=== PATIENT | female | born 1950 | race Two or more races ===

== ENCOUNTER 2020-07-07 05:41 | Inpatient (IN) | payer OTHER ==
--- NOTE | 2020-06-25 09:18 | NUR ---
*-* DISCHARGE PLANNING NOTE *-* UTILIZE CERTIFIED LETTER FOR DISCHARGE PLANNING NEEDS. [facility]# [id number] DOI 09/18/2013 CERT CODE: [id number] JEMMA DUNLAP ADJ VERIFIED [phone] CERTIFIED LETTER HAS BEEN EMAILED TO LAPPING MACHINE SET UP OPERATOR FLAVIO AND CM TECHNOLOGY COORDINATOR.
[~2020-07-07] VITALS: Ht 7.6 cm; Wt 105.2 kg
[2020-07-07] VITALS (16 sets, daily range): BP systolic 95–144; BP diastolic 40–84
[~2020-07-07 05:41] MED LIST: LOSARTAN POTASS50 MG ORAL
[2020-07-07] MEDS ORDERED: LR 1000ml 1,000 ML IVLG SCH (06:57)
--- NOTE | 2020-07-07 06:59 | Anethesia Preoperative Eval ---
Anesthesia Pre-op PMH/ROS General Date of Evaluation: Jul 07, 2020 Time of Evaluation: 07:51 Anesthesiologist: Yunior ASA Score: ASA 3 Mallampati Score Class I : Soft palate, uvula, fauces, pillars visible Class II: Soft palate, uvula, fauces visible Class III: Soft palate, base of uvula visible Class IV: Only hard plate visible Mallampati Classification: Class II Surgeon: Abe Diagnosis: L Knee Pain Surgical Procedure: L Knee Total Arthroplasty Anesthesia History: none Family History: no anesthesia problems Allergies: Coded Allergies: No Known Allergies (Unverified , 07/06/20) Medications: see eMAR Patient NPO?: Yes Past Medical History Cardiovascular: Reports: HTN Gastrointestinal/Genitourinary: Reports: other - Uterine CA Neurologic/Psychiatric: Reports: depression/anxiety Musculoskeletal/Integumentary: Reports: OA Other: obesity - Mrbid BMI 40 PSxH Narrative: CALISTA Anesthesia Pre-op Phys. Exam Physician Exam Last Vital Signs Date Time Temp Pulse Resp B/P (MAP) Pulse Ox O2 Delivery O2 Flow Rate FiO2 07/07/20 06:34 Room Air 07/07/20 06:32 97.6 92 18 144/79 (100) 97 Constitutional: NAD Neurologic: CN 2-12 intact Cardiovascular: RRR Respiratory: CTA Gastrointestinal: S/NT/ND Airway Exam Mallampati Score: Class II MO: full ROM: limited Teeth: missing, intact Anesthesia Pre-op A/P Risk Assessment & Plan Assessment: ASA 3 Plan: GA, Spinal Status Change Before Surgery: No Pre-Antibiotics Dru Grams Ancef IV Given Within 1 Hr of Incision: Yes Time Given: 08:36 Andrey Mojica MD Jul 07, 2020 06:59
[2020-07-07] MEDS ORDERED: oxyCODONE HCL/Acetaminophen 5/325mg ORAL PRN (07:00)
[2020-07-07] MEDS ORDERED: Meperidine 25mg/0.5ml Inj (FOR RIGORS ONLY) IV PRN (07:00)
[2020-07-07] MEDS ORDERED: Hydromorphone 0.5mg/0.5ml inj IVP PRN (07:00)
[2020-07-07] MEDS ORDERED: Labetalol 5mg/ml 20ml vial IV PRN (07:00)
[2020-07-07] MEDS ORDERED: HYDROcodone/Acetamin 5/325 tab ORAL PRN ×2 (07:00→13:15)
[2020-07-07] MEDS ORDERED: LORazepam Inj 2mg/ml 1ml IV PRN (07:00)
[2020-07-07] MEDS ORDERED: Atropine Sulfate 0.4mg/ml inj IVP PRN (07:00)
[2020-07-07] MEDS ORDERED: DiphenhydrAMINE 50mg/ml Inj IVP PRN (07:00)
[2020-07-07] MEDS ORDERED: Metoclopramide 10mg/2ml Inj IVP PRN (07:00)
[2020-07-07] MEDS ORDERED: Ketorolac 30mg Inj IV PRN ×2 (07:00)
[2020-07-07] MEDS ORDERED: ceFAZolin sod 2 GM in NS 55 ML IVPB ONE (07:00)
[2020-07-07] MEDS ORDERED: fentaNYL 100 mcg/2 mL IV PRN (07:00)
[2020-07-07] MEDS ORDERED: Midazolam 2mg/2ml Inj IVP PRN (07:00)
[2020-07-07] MEDS ORDERED: HYDROcodone/Acetamin 7.5/325 tab ORAL PRN ×2 (07:00→13:15)
[2020-07-07] MEDS ORDERED: EPINEPHrine 1mg/1ml Amp ONE ×2 (07:02→09:39)
[2020-07-07] MEDS ORDERED: Bupivacaine 0.5% Inj 30 ml vial INJ ONE (07:03)
[2020-07-07] MEDS ORDERED: cloNIDine 1000mcg/10ml inj ONE (07:03)
[2020-07-07] MEDS ORDERED: NeoSporin Gu Irrig 1ml Amp IRRIG ONE (07:06)
[2020-07-07] MEDS ORDERED: Bacitracin 50000 Units Vial ONE (07:06)
[2020-07-07] MEDS ORDERED: Tranexamic Acid 1,000 MG in NS 55 ML IV ONE (07:15)
--- NOTE | 2020-07-07 07:33 | Immediate Post-Op Evaluation ---
Immediate Post-Op Evalulation Immediate Post-Op Evalulation Procedure: L Knee Total Arthroplasty Date of Evaluation: Jul 07, 2020 Time of Evaluation: 13:22 IV Fluids: 1700 LR Blood Products: 0 Estimated Blood Loss: 100 Urinary Output: 0 Blood Pressure Systolic: 107 Blood Pressure Diastolic: 46 Pulse Rate: 100 Respiratory Rate: 16 O2 Sat by Pulse Oximetry: 100 Temperature (Fahrenheit): 97.6 Pain Score (1-10): 1 Nausea: No Vomiting: No Complications 0 Patient Status: awake, reacts, patent, none Hydration Status: adequate Dru Grams Ancef IV Given Within 1 Hr of Incision: Yes Time Given: 08:36 Andrey Mojica MD Jul 07, 2020 07:33
[2020-07-07] MEDS ORDERED: NS Irrig 2000ml IRRIG ONE ×3 (07:41→11:02)
[2020-07-07] MEDS ORDERED: Sodium Chloride 10ml vial INJ ONE (08:08)
[2020-07-07] MEDS ORDERED: Lidocaine 1% MPF 10mg/ml 5ml ONE ×2 (08:08→10:20)
--- NOTE | 2020-07-07 08:10 | Pre-Procedure Note/Attestation ---
Pre-Procedure Note/Attestation Complete Prior to Procedure Planned Procedure: left Procedure Narrative: Left Total Knee Arthroplasty Indications for Procedure Pre-Operative Diagnosis: End stage OA with Varus Deformity, Contractures, and Instability Attestation I attest that I discussed the nature of the procedure; its benefits; risks and complications; and alternatives (and the risks and benefits of such alternatives ), prior to the procedure, with the patient (or the patient's legal territory sales representative). I attest that, if there was a reasonable possibility of needing a blood transfusion, the patient (or the patient's legal territory sales representative) was given the [facility] standardized written summary, pursuant to the Dustin Leeanna Blood Safety Act ([place] Health and Safety Code # 1645, as amended). I attest that I re-evaluated the patient just prior to the surgery and that there has been no change in the patient's H&P, except as documented below: Diony Fish MD Jul 07, 2020 08:10
[2020-07-07] MEDS ORDERED: fentaNYL 100 mcg/2 mL IV ONE ×4 (08:52→11:48)
[2020-07-07] MEDS ORDERED: Lidocaine 1% Plain 30 ml INJ ONE (08:57)
[2020-07-07] MEDS ORDERED: Acetaminophen (Non formulary) 100 ML IV ONE (09:20)
[2020-07-07] MEDS ORDERED: Ropivacaine 5mg/ml Vial 20ml INJ ONE ×3 (09:39→12:39)
[2020-07-07] MEDS ORDERED: Metoprolol Tartrate 5mg/5ml Inj ONE ×2 (11:46→12:30)
[2020-07-07] MEDS ORDERED: Bupivacaine w/Epi 0.5% 30ml Vial INJ ONE (12:36)
[2020-07-07] MEDS ORDERED: Milk of Magnesia 30ml Ud ORAL PRN (13:15)
[2020-07-07] MEDS ORDERED: HYDROmorphone 1mg/ml Carpuject SUBQ PRN (13:15)
[2020-07-07] MEDS ORDERED: oxyCODONE 5mg IR tab ORAL PRN (13:15)
--- NOTE | 2020-07-07 13:40 | Brief Operative Note ---
Immediate Post Operative Note Operative Note Chief Complaint: End stage OA with Deformity and limited motion Pre-op Diagnosis: End stage OA with Varus Deformity, Contractures, and Instability Post-op Diagnosis: same as pre-op Surgeon: Scott Morales M.D. Dude Wrangler: Greg Polo M.D. Additional Surgeons: Linwood Rodas Anesthesia: general, regional Specimen: yes Complications: none Condition: stable Fluids: 1500 Estimated Blood Loss: volume - less than 75 cc Drains: hemovac Tourniquet time: 124 Implant(s) used?: Yes - Astrid Persona Size 5 Left PS Femur, Size C Tibia, 20mm Post Poly, and 29 x 8 poly patella, all cemented Diony Fish MD Jul 07, 2020 13:40
--- NOTE | 2020-07-07 13:43 | Immediate Post-Op Evaluation ---
Immediate Post-Op Evalulation Immediate Post-Op Evalulation Procedure: L Knee Total Arthroplasty Date of Evaluation: Jul 07, 2020 Time of Evaluation: 13:45 IV Fluids: yes Blood Products: no Estimated Blood Loss: less than 75cc Blood Pressure Systolic: 126 Blood Pressure Diastolic: 88 Pulse Rate: 72 Respiratory Rate: 16 O2 Sat by Pulse Oximetry: 96 Temperature (Fahrenheit): 98.8 Pain Score (1-10): 7 Nausea: No Vomiting: No Complications No Patient Status: reacts - drowzy Hydration Status: adequate Drug: Ancef Given Within 1 Hr of Incision: Yes Time Given: 13:00 Diony Fish MD Jul 07, 2020 13:43
[2020-07-07 14:19] LABS: HEMATOCRIT 37.8 % (37.0-47.0); HEMOGLOBIN 12.5 G/DL (12.0-16.0); MEAN CORPUSCULAR VOLUME 101 FL (80-99); PLATELET COUNT 79 K/UL (150-450); RED BLOOD COUNT 3.75 M/UL (4.20-5.40); RED CELL DISTRIBUTION WIDTH 12.1 % (11.6-14.8); WHITE BLOOD COUNT 7.5 K/UL (4.8-10.8)
--- NOTE | 2020-07-07 14:45 | NUR ---
NURSE NOTES: Report received from Rosi SQL DEVELOPER. Patient is transferred from PACU to [address] [place] [address] without any incident. Patient is alert, oriented x4, and able to make needs known. Respirations even and unlabored. IV site is asymptomatic, patent, and intact. IVF is running at a prescribed rate. Mehta catheter is patent, intact, and draining via gravity. Patient is able to feel sensation on left lower extremity, warm to touch, and patient is able to move toes. Belongings list checked and signed with SIDE SPLITTER. Bed is in lowest position with side rails up x2 and brakes are engaged. Bed alarm is on. Encouraged patient to use call light when in need of assistance, pt verbalized understanding. Will continue to monitor.
--- NOTE | 2020-07-07 16:11 | NUR ---
NURSE NOTES: Patient is asleep but arousable by voice. Denies pain at this time. Respirations even and unlabored. Will continue to monitor.
[2020-07-07] MEDS: celeBREX 200mg Cap **SURGERY PATIENTS ONLY ORAL SCH (16:52)
[2020-07-07] MEDS: D5 1/2NS w/KCl 20mEq 1,000 ML IV SCH (17:04)
[2020-07-07] MEDS: ceFAZolin 2gm/50ml Premix 50 ML IV SCH (17:05)
[2020-07-07] MEDS: Docusate 100mg cap ORAL SCH (17:06)
[2020-07-07] MEDS: Acetaminophen 500mg (ES) tab ORAL SCH (17:07)
--- NOTE | 2020-07-07 17:28 | Diagnostic Imaging Report ---
Indications: Postoperative Technique: Two views of the left knee Comparison: None Findings: Two postoperative views of the left knee demonstrate total knee arthroplasty, good anatomic alignment of the prosthesis. There is a surgical drain in place. . There is postsurgical soft tissue air. Impression: Postoperative left knee, no unusual features.
--- NOTE | 2020-07-07 17:41 | General Progress Note ---
Assessment/Plan Assessment/Plan: End stage OA with Deformity and limited motion End stage OA with Varus Deformity, Contractures, and Instability PLAN 1. incentive spirometry 2. SCD 3. PT evaluation and therapy 4. Hydration 5. Pain management 6. discharge once stable with outpatient follow up Subjective Allergies: Coded Allergies: No Known Allergies (Unverified , 07/06/20) Subjective asked to follow up postop Objective Last 24 Hour Vital Signs Date Time Temp Pulse Resp B/P (MAP) Pulse Ox O2 Delivery O2 Flow Rate FiO2 07/07/20 16:45 98.5 99 20 127/75 (92) 98 07/07/20 15:45 98.9 100 20 125/84 (98) 98 07/07/20 15:15 98.0 102 20 128/63 (84) 98 07/07/20 14:45 98.5 99 20 112/77 (89) 98 07/07/20 14:35 98.6 99 17 121/68 100 Nasal Cannula 3 07/07/20 14:25 99 22 111/72 100 Nasal Cannula 3 07/07/20 14:12 97.9 07/07/20 14:12 97.9 07/07/20 14:10 98 20 119/68 100 Nasal Cannula 3 07/07/20 13:57 100 23 116/68 100 Nasal Cannula 3 07/07/20 13:43 72 16 96 07/07/20 13:42 102 18 101/43 100 Nasal Cannula 3 07/07/20 13:39 101 18 95/47 100 Simple Mask 6 07/07/20 13:29 100 22 106/40 100 Simple Mask 6 07/07/20 13:19 101 23 106/40 99 Simple Mask 6 07/07/20 13:14 100 23 103/56 99 Simple Mask 6 07/07/20 13:11 100 16 100 07/07/20 13:09 98.4 105 21 97/44 99 Simple Mask 6 07/07/20 06:34 Room Air 07/07/20 06:32 97.6 92 18 144/79 (100) 97 Intake and Output 07/06/20 07/07/20 19:00 07:00 # Voids 1 Laboratory Tests 07/07/20 14:15: White Blood Count 7.5, Red Blood Count 3.75L, Hemoglobin 12.5, Hematocrit 37.8, Mean Corpuscular Volume 101H, Mean Corpuscular Hemoglobin 33.3H, Mean Corpuscular Hemoglobin Concent 33.0, Red Cell Distribution Width 12.1, Platelet Count 79L, Mean Platelet Volume 8.5, Neutrophils (%) (Auto) , Lymphocytes (%) ( Auto) , Monocytes (%) (Auto) , Eosinophils (%) (Auto) , Basophils (%) (Auto) , Differential Total Cells Counted 100, Neutrophils % (Manual) 89H, Lymphocytes % (Manual) 9L, Monocytes % (Manual) 2, Eosinophils % (Manual) 0, Basophils % ( Manual) 0, Band Neutrophils 0, Platelet Estimate DecreasedL, Platelet Morphology Normal, Macrocytosis 1+ Height (Feet): 5 Height (Inches): 0.00 Weight (Pounds): 200 Objective WDWN NAD clear breath sounds bilaterally without rhonchi or wheeze [id number] without MRG NABS nontender no HSM no CCE nonfocal Srikanth Fernandez MD Jul 07, 2020 17:41
--- NOTE | 2020-07-07 19:52 | NUR ---
NURSE HAND-OFF: Important Events on Shift: Patient Status: stable Diet: Regular diet Pending Orders: Pending Results/Labs: Pending MD notification: Latest Vital Signs: Temperature 98.5 , Pulse 99 , B/P 127 /75 , Respiratory Rate 20 , O2 SAT 98 , Nasal Cannula, O2 Flow Rate 2.0 . Vital Sign Comment: Latest Chandler Fall Score: 20 Fall Risk: Low Risk Safety Measures: Call light Within Reach, Bed Alarm Zone 2, Side Rails Side Rails x2, Bed position Low and Locked. Fall Precautions: Yellow Socks Endorsed to night order selector nurse post-op orders. Report given to Rhoda BABCOCK.
--- NOTE | 2020-07-07 19:52 | NUR ---
NURSES NOTE: Pt in bed, mainly Greenlandic speaker but understands some Colombian. Denies pain at this time. No outward s/s of distress noted. Breathing pattern is even and unlabored on 2L nasal canula. L knee bandages are clean, dry, intact. Pt is using CPM until roughly 2300. Pt tolerates CPM well. R hand IV in place, infusing IVF fluids without incident. All due medications will be given. Bed at lowest level, call light within reach, pt will continue to be monitored.
[2020-07-07] MEDS: oxyCONTIN 20mg tab ORAL SCH (20:45)
--- NOTE | 2020-07-07 23:05 | NUR ---
NURSES NOTE: Pt removed off of CPM. Tolerated well. Denies pain.
[2020-07-08] VITALS: BP 110/60
[2020-07-08] MEDS: ceFAZolin 2gm/50ml Premix 50 ML IV SCH (00:44)
[2020-07-08 04:00] VITALS: BP 110/63
[2020-07-08] MEDS: D5 1/2NS w/KCl 20mEq 1,000 ML IV SCH ×2 (05:28→18:05)
[2020-07-08 06:36] LABS: HEMATOCRIT 31.3 % (37.0-47.0); HEMOGLOBIN 10.6 G/DL (12.0-16.0); MEAN CORPUSCULAR VOLUME 100 FL (80-99); PLATELET COUNT 46 K/UL (150-450); RED BLOOD COUNT 3.13 M/UL (4.20-5.40); RED CELL DISTRIBUTION WIDTH 11.9 % (11.6-14.8); WHITE BLOOD COUNT 5.7 K/UL (4.8-10.8)
[2020-07-08 06:44] LABS: INR 1.4 (0.9-1.1)
--- NOTE | 2020-07-08 06:53 | NUR ---
NURSE HAND-OFF: Important Events on Shift:[Dr Fish called and updated about morning labs. Platelets 46, PT 1.4 INR 15.2, RBC,HGB HCT all trending down. 210 cc from Hemovac, sanguinous.] Patient Status: [Stable] Diet: [Regular] Pending Orders: [NONE] Pending Results/Labs:[NONE] Pending MD notification:[Called and message left 0650] Latest Vital Signs: Temperature 97.6 , Pulse 69 , B/P 110 /63 , Respiratory Rate 16 , O2 SAT 97 , Nasal Cannula, O2 Flow Rate 2.0 . Vital Sign Comment: [WNL] Latest Chandler Fall Score: 20 Fall Risk: Low Risk Safety Measures: Call light Within Reach, Bed Alarm Zone 2, Side Rails Side Rails x2, Bed position Low and Locked. Fall Precautions: Yellow Socks Report given to [].
--- NOTE | 2020-07-08 07:10 | NUR ---
NURSE NOTES: Report received from Crissy BABCOCK, rounds made. Patient AOX4, calm, eating breakfast in high fowlers position, in bed. No distress on RA. Respirations even/unlabored. IS at bedside. Denies pain, SOB, NV. LLE hailey wrap in place, small amount of bloody drainage noted to left distal surgical site. Hemovac in place. Neuros intact, skin warm, wiggles, pulses palpable, hand grasps 4/5/pedal pushes 3/5, no NT. Right SCD on. IV D5 1/2 NS +20 KCL at 75 ml/hr to right hand, site asymptomatic. FC draining y/cl to gravity. Call light in reach, bed in lowest position, will continue to monitor.
--- NOTE | 2020-07-08 07:36 | NUR ---
HAND OFF: Report given to SADIQ Jarquin.
--- NOTE | 2020-07-08 07:51 | NUR ---
NURSE NOTES: Dr. Fernandez notified of AM lab results and patient having bloody drainage to LLE surgical site dressing, order received.
--- NOTE | 2020-07-08 07:57 | General Progress Note ---
Assessment/Plan Assessment/Plan: End stage OA with Deformity and limited motion End stage OA with Varus Deformity, Contractures, and Instability thrombocytopenia anemia elevated INR PLAN 1. incentive spirometry 2. SCD; hold lovenox 3. PT evaluation and therapy 4. Hydration 5. Pain management 6. discharge once stable with outpatient follow up Subjective Allergies: Coded Allergies: No Known Allergies (Unverified , 07/06/20) Subjective care noted platelets reduced Objective Last 24 Hour Vital Signs Date Time Temp Pulse Resp B/P (MAP) Pulse Ox O2 Delivery O2 Flow Rate FiO2 07/08/20 04:00 97.6 69 16 110/63 (79) 97 07/08/20 00:00 97.9 76 16 110/60 (77) 97 07/07/20 21:00 Nasal Cannula 2.0 07/07/20 20:00 97.8 86 17 124/75 (91) 98 07/07/20 16:45 98.5 99 20 127/75 (92) 98 07/07/20 15:45 98.9 100 20 125/84 (98) 98 07/07/20 15:15 98.0 102 20 128/63 (84) 98 07/07/20 15:00 Nasal Cannula 2.0 07/07/20 14:45 98.5 99 20 112/77 (89) 98 07/07/20 14:35 98.6 99 17 121/68 100 Nasal Cannula 3 07/07/20 14:25 99 22 111/72 100 Nasal Cannula 3 07/07/20 14:12 97.9 07/07/20 14:12 97.9 07/07/20 14:10 98 20 119/68 100 Nasal Cannula 3 07/07/20 13:57 100 23 116/68 100 Nasal Cannula 3 07/07/20 13:43 72 16 96 07/07/20 13:42 102 18 101/43 100 Nasal Cannula 3 07/07/20 13:39 101 18 95/47 100 Simple Mask 6 07/07/20 13:29 100 22 106/40 100 Simple Mask 6 07/07/20 13:19 101 23 106/40 99 Simple Mask 6 07/07/20 13:14 100 23 103/56 99 Simple Mask 6 07/07/20 13:11 100 16 100 07/07/20 13:09 98.4 105 21 97/44 99 Simple Mask 6 Intake and Output 07/07/20 07/08/20 19:00 07:00 Intake Total 2000 ml 960 ml Output Total 510 ml 2410 ml Balance 1490 ml -1450 ml Intake Oral 960 ml IV Total 2000 ml Output Urine Total 350 ml 2200 ml Drainage Total 60 ml 210 ml Estimated Blood Loss 100 ml # Voids 1 Laboratory Tests 07/07/20 14:15: White Blood Count 7.5, Red Blood Count 3.75L, Hemoglobin 12.5, Hematocrit 37.8, Mean Corpuscular Volume 101H, Mean Corpuscular Hemoglobin 33.3H, Mean Corpuscular Hemoglobin Concent 33.0, Red Cell Distribution Width 12.1, Platelet Count 79L, Mean Platelet Volume 8.5, Neutrophils (%) (Auto) , Lymphocytes (%) ( Auto) , Monocytes (%) (Auto) , Eosinophils (%) (Auto) , Basophils (%) (Auto) , Differential Total Cells Counted 100, Neutrophils % (Manual) 89H, Lymphocytes % (Manual) 9L, Monocytes % (Manual) 2, Eosinophils % (Manual) 0, Basophils % ( Manual) 0, Band Neutrophils 0, Platelet Estimate DecreasedL, Platelet Morphology Normal, Macrocytosis 1+ 07/08/20 05:30: White Blood Count 5.7, Red Blood Count 3.13L, Hemoglobin 10.6L, Hematocrit 31.3L , Mean Corpuscular Volume 100H, Mean Corpuscular Hemoglobin 33.8H, Mean Corpuscular Hemoglobin Concent 33.7, Red Cell Distribution Width 11.9, Platelet Count 46L, Mean Platelet Volume 10.1, Neutrophils (%) (Auto) , Lymphocytes (%) ( Auto) , Monocytes (%) (Auto) , Eosinophils (%) (Auto) , Basophils (%) (Auto) , Neutrophils % (Manual) [Pending], Lymphocytes % (Manual) [Pending], Platelet Estimate [Pending], Platelet Morphology [Pending], Prothrombin Time 15.2H, Prothromb Time International Ratio 1.4H Height (Feet): 5 Height (Inches): 0.00 Weight (Pounds): 200 Objective WDWN NAD clear breath sounds bilaterally without rhonchi or wheeze [id number] without MRG NABS nontender no HSM no CCE nonfocal Srikanth Fernandez MD Jul 08, 2020 07:57
[2020-07-08 08:00] VITALS: BP 109/75
--- NOTE | 2020-07-08 08:12 | NUR ---
NURSE NOTES: Patient updated with new order for pressure dressing, verbalized understandign. LLE pressure dressing (kerlix) applied to mid left leg (knee) secured with silk tape. Will continue to monitor.
[2020-07-08] MEDS: oxyCONTIN 20mg tab ORAL SCH ×2 (08:51→20:29)
[2020-07-08] MEDS: Docusate 100mg cap ORAL SCH ×3 (08:52→18:04)
[2020-07-08] MEDS: Acetaminophen 500mg (ES) tab ORAL SCH ×3 (08:52→18:04)
[2020-07-08] MEDS: celeBREX 200mg Cap **SURGERY PATIENTS ONLY ORAL SCH (08:52)
[2020-07-08] MEDS ORDERED: Sterile Water Irrig 2000ml IRRIG ONE (09:11)
[2020-07-08] MEDS ORDERED: LR 1000ml ONE (09:11)
--- NOTE | 2020-07-08 09:30 | NUR ---
PT EVALUATION NOTE Patient seen for initial evaluation and treatment initiated. Patient presents with L knee pain and LLE weakness s/p L TKA. Patient requires mod assist for bed mobility and min assist for transfers with FWW. Patient able to take several small forward/backward and sideways steps with FWW however unable to ambulate. Patient will benefit from skilled inpatient PT intervention to increase strength and postural stability for improved level of functional mobility including stair training as patient has 5 stairs to access her apartment. Recommend ARU/SNF for further rehab vs home with home PT depending on patient's progress once medically cleared by MD. Patient has SPC, FWW and wheelchair at home. Addendum: 07/08/20 at 1124 by AILIN KARIMI PT Amended: Links added.
--- NOTE | 2020-07-08 11:01 | General Progress Note ---
Assessment/Plan Status: stable Status Narrative See Above Assessment/Plan: See Above Subjective Date patient seen: Jul 08, 2020 Time patient seen: 10:30 ROS Limited/Unobtainable: No Constitutional: Reports: no symptoms HEENT: Reports: no symptoms Cardiovascular: Reports: no symptoms Respiratory: Reports: no symptoms Gastrointestinal/Abdominal: Reports: no symptoms Genitourinary: Reports: no symptoms Neurologic/Psychiatric: Reports: no symptoms Endocrine: Reports: no symptoms Hematologic/Lymphatic: Reports: no symptoms Allergies: Coded Allergies: No Known Allergies (Unverified , 07/06/20) All Systems: reviewed and negative except above Subjective Pt doing well, pain controlled, except after PT as expected, No BM but + gas Denies any distal parasthesia No N/V Objective Last 24 Hour Vital Signs Date Time Temp Pulse Resp B/P (MAP) Pulse Ox O2 Delivery O2 Flow Rate FiO2 07/08/20 08:00 98.0 82 16 109/75 (86) 97 07/08/20 04:00 97.6 69 16 110/63 (79) 97 07/08/20 00:00 97.9 76 16 110/60 (77) 97 07/07/20 21:00 Nasal Cannula 2.0 07/07/20 20:00 97.8 86 17 124/75 (91) 98 07/07/20 16:45 98.5 99 20 127/75 (92) 98 07/07/20 15:45 98.9 100 20 125/84 (98) 98 07/07/20 15:15 98.0 102 20 128/63 (84) 98 07/07/20 15:00 Nasal Cannula 2.0 07/07/20 14:45 98.5 99 20 112/77 (89) 98 07/07/20 14:35 98.6 99 17 121/68 100 Nasal Cannula 3 07/07/20 14:25 99 22 111/72 100 Nasal Cannula 3 07/07/20 14:12 97.9 07/07/20 14:12 97.9 07/07/20 14:10 98 20 119/68 100 Nasal Cannula 3 07/07/20 13:57 100 23 116/68 100 Nasal Cannula 3 07/07/20 13:43 72 16 96 07/07/20 13:42 102 18 101/43 100 Nasal Cannula 3 07/07/20 13:39 101 18 95/47 100 Simple Mask 6 07/07/20 13:29 100 22 106/40 100 Simple Mask 6 07/07/20 13:19 101 23 106/40 99 Simple Mask 6 07/07/20 13:14 100 23 103/56 99 Simple Mask 6 07/07/20 13:11 100 16 100 07/07/20 13:09 98.4 105 21 97/44 99 Simple Mask 6 Intake and Output 07/07/20 07/08/20 19:00 07:00 Intake Total 2000 ml 960 ml Output Total 510 ml 2410 ml Balance 1490 ml -1450 ml Intake Oral 960 ml IV Total 2000 ml Output Urine Total 350 ml 2200 ml Drainage Total 60 ml 210 ml Estimated Blood Loss 100 ml # Voids 1 Laboratory Tests 07/07/20 14:15: White Blood Count 7.5, Red Blood Count 3.75L, Hemoglobin 12.5, Hematocrit 37.8, Mean Corpuscular Volume 101H, Mean Corpuscular Hemoglobin 33.3H, Mean Corpuscular Hemoglobin Concent 33.0, Red Cell Distribution Width 12.1, Platelet Count 79L, Mean Platelet Volume 8.5, Neutrophils (%) (Auto) , Lymphocytes (%) ( Auto) , Monocytes (%) (Auto) , Eosinophils (%) (Auto) , Basophils (%) (Auto) , Differential Total Cells Counted 100, Neutrophils % (Manual) 89H, Lymphocytes % (Manual) 9L, Monocytes % (Manual) 2, Eosinophils % (Manual) 0, Basophils % ( Manual) 0, Band Neutrophils 0, Platelet Estimate DecreasedL, Platelet Morphology Normal, Macrocytosis 1+ 07/08/20 05:30: White Blood Count 5.7, Red Blood Count 3.13L, Hemoglobin 10.6L, Hematocrit 31.3L , Mean Corpuscular Volume 100H, Mean Corpuscular Hemoglobin 33.8H, Mean Corpuscular Hemoglobin Concent 33.7, Red Cell Distribution Width 11.9, Platelet Count 46L, Mean Platelet Volume 10.1, Neutrophils (%) (Auto) , Lymphocytes (%) ( Auto) , Monocytes (%) (Auto) , Eosinophils (%) (Auto) , Basophils (%) (Auto) , Differential Total Cells Counted 100, Neutrophils % (Manual) 82H, Lymphocytes % (Manual) 13L, Monocytes % (Manual) 5, Eosinophils % (Manual) 0, Basophils % ( Manual) 0, Band Neutrophils 0, Platelet Estimate DecreasedL, Platelet Morphology Normal, Macrocytosis 1+, Prothrombin Time 15.2H, Prothromb Time International Ratio 1.4H Height (Feet): 5 Height (Inches): 3 Weight (Pounds): 200 General Appearance: no apparent distress, obese EENT: normal ENT inspection Neck: normal alignment Cardiovascular: normal peripheral pulses, normal rate Respiratory/Chest: no respiratory distress Abdomen: non tender, soft Pelvis: other Genitourinary/Rectal: other Extremities: normal capillary refill, swelling Edema: no edema noted Arm (L), no edema noted Arm (R); 1+ Leg (L); no edema noted Leg (R), no edema noted Pedal (L), no edema noted Pedal (R), no edema noted Generalized Edema: mild edema Neurologic: motor weakness Skin: warm/dry Lymphatic: normal anterior cervical (L), normal anterior cervical (R), normal posterior cervical (L), normal posterior cervical (R), normal submandibular (L) , normal submandibular (R), normal supraclavicular (L), normal supraclavicular ( R), normal axillary (L), normal axillary (R), normal inguinal (L), normal inguinal (R), normal other Objective POD #1 s/p Lt TKA Pt doing well, pain controlled, AVSS Lt leg - Dressing intact, min drainage, Calf soft and NT, neg [place] Distal motor and sensory intact A/P: s/p TKA Lt knee Cont PT, decrease lovenox to 30 qd, cont CPM, Start Ice Machine Rec transfer to Rehab vs Home if possible MIPS Medication Reconciliation 130 Medication Reconciliation Decrease lovenox to 30mg qd Is this a Psycho/Diag encounte: No Depression Does this Patient have Dementi: No Diony Fish MD Jul 08, 2020 11:01
[2020-07-08 12:00] VITALS: BP 96/61
--- NOTE | 2020-07-08 13:07 | 48 Hour Post Anesthesia Eval ---
Post Anesthesia Evaluation Procedure: L Knee Total Arthroplasty Date of Evaluation: Jul 08, 2020 Time of Evaluation: 13:06 Blood Pressure Systolic: 108 0: 72 Pulse Rate: 68 Respiratory Rate: 20 Temperature (Fahrenheit): 97.5 O2 Sat by Pulse Oximetry: 98 Airway: patent Nausea: No Vomiting: No Pain Intensity: 3 Hydration Status: adequate Cardiopulmonary Status: stable Mental Status/LOC: patient returned to baseline Follow-up Care/Observations: n/a Post-Anesthesia Complications: none Follow-up care needed: N/A Aditya Dumont MD Jul 08, 2020 13:07
--- NOTE | 2020-07-08 14:55 | NUR ---
CANINE ENFORCEMENT OFFICER NOTE SW received home safety evaluation consult. Per note, pt is recommended for ARU/SNF for further reheb and her workers comp insurance approved for 2-3 weeks of rehab. SW spoke w/ pt through medical transcriber Leanne #[id number]. Pt is residing w/ her family at [address] [place] [address] and pt reports she uses wheelchair when she goes outside. Pt was informed of rehab approval from insurance. SW and pt discussed rehab recommendation. Pt is wiling to accept the recommendation.
--- NOTE | 2020-07-08 15:03 | NUR ---
DISCHARGE PLANNING CM ATTEMPTED TWICE TO CALL WC ADJ ELIJAH MCDONALD ADJ VERIFIED [phone] CM WILL ATTEMPT AGAIN CM RECEIVED ORDER FOR REHAB BUT PER AUTH LETTER PATIENT MAY ONLY RECEIVE HOME PT CM NEED TO VERIFY INFORMATION WITH ADJUSTOR Addendum: 07/09/20 at 1729 by CONOR GOODE LVN GARIMA COVERING FOR ELIJAH Parker MESSAGE FOR GARIMA T:[phone]
[2020-07-08 16:00] VITALS: BP 128/76
--- NOTE | 2020-07-08 16:49 | NUR ---
CASE MANAGEMENT: INITIAL REVIEW 69YR OLD FEMALE FROM HOME HERE FOR SCHEDULE SURGERY CC:LEFT KNEE PAIN SI:LEFT KNEE ARTHRITIS . THROMBOCYTOPENIA 97.6 92 18 144/79 97% ON RA PLT 79 IS:IN SURGERY NOW LEFT KNEE TOTAL ARTHROPLASTY \: 3E MED SURG UNIT DCP: HOME WHEN STABLE PLAN: IV HYDRATION CONTROL PAIN ENCOURAGE IS DEVICE DVT PROPHYLAXIS MONITOR PLT LEVEL ~LOW CASE MANAGEMENT: REVIEW 07/08/20 SI:LEFT KNEE ARTHRITIS . THROMBOCYTOPENIA . HYPOTENSIVE 97.5 83 16 96/61 95% ON RA PLT 46 PT 15.2 INR 1.4 IS:IV D5 @75ML/HR IV DILAUDID Q4HR/PRN OXYCONTIN PO BID \: 3E MED SURG UNIT DCP: HOME WHEN STABLE PLAN: CONT IV HYDRATION CONT TO CONTROL PAIN ENCOURAGE IS DEVICE DVT PROPHYLAXIS MONITOR PLT LEVEL ~LOWER PT EVAL AND THERAPY RECOMMENDATION SW CONSULT REHAB CONSULT ~IF CLEARED TO BY WC ADJUSTOR
--- NOTE | 2020-07-08 18:35 | NUR ---
NURSE NOTES: FC discontinued at 1400, voided 75 ml on BSC at 1800. On CPM 0-30 degrees at 12-1330 and 1835 will endorse to next shift remove at 1935. Ice pack x2 in place throughout shift. Neuros remain unchanged. No further bleeding on pressure dressing, CDI.
--- NOTE | 2020-07-08 19:28 | NUR ---
NURSE HAND-OFF: Important Events on Shift:CPM TID 0-30 degrees for one hour, keep towel under left heel when off CPM, FC out at 1400, voided 75 ml at 1800 on BSC Patient Status: stable Diet: regular Hemovac: 100 ml Pending Orders: none Pending Results/Labs:none Pending MD notification:none Latest Vital Signs: Temperature 97.6 , Pulse 81 , B/P 128 /76 , Respiratory Rate 16 , O2 SAT 99 , Room Air, O2 Flow Rate 2.0 . Vital Sign Comment: none Latest Chandler Fall Score: 60 Fall Risk: High Risk Safety Measures: Call light Within Reach, Bed Alarm Zone 2, Side Rails Side Rails x2, Bed position Low and Locked. Fall Precautions: Yellow Socks Yellow Gown Patient Fall Education Report given to Crissy BABCOCK.
[2020-07-08 20:00] VITALS: BP 108/55
--- NOTE | 2020-07-08 20:15 | NUR ---
NURSES NOTE: Received report from SADIQ Jarquin. Pt in bed, A/OX4, denies pain at this moment. No outward s/s of distress noted. Breathing pattern is even and unlabored- pt placed bk on o2 at 2 L. VS WNL. Knee is in CMP soon to be removed and to be done later in NOC shift x1 hour. Knee dressing, L knee, is clean, dry and intact. IV in place, infusing IVF fluids without incident. All due medications will be administered. Bed at lowest level. Call light within reach. Pt will continue to be monitored.
[2020-07-08] MEDS ORDERED: Enoxaparin 30mg Inj SUBQ SCH (21:00)
--- NOTE | 2020-07-08 22:00 | NUR ---
NURSES NOTE: 2100 dose of Lovenox administered although platelet count is low. Dr Fish is aware of AM labs and ordered to continue Lovenox.
[2020-07-09] VITALS: BP 115/71
[2020-07-09 04:00] VITALS: BP 119/71
[2020-07-09 06:40] LABS: HEMATOCRIT 31.9 % (37.0-47.0); HEMOGLOBIN 10.7 G/DL (12.0-16.0); MEAN CORPUSCULAR VOLUME 100 FL (80-99); PLATELET COUNT 65 K/UL (150-450); WHITE BLOOD COUNT 9.2 K/UL (4.8-10.8)
--- NOTE | 2020-07-09 06:54 | NUR ---
NURSE HAND-OFF: Important Events on Shift:[Pt ambulated to commode x1] Patient Status: [NONE] Diet: [REGULAR] Pending Orders: [NONE] Pending Results/Labs:[NONE] Pending MD notification:[NONE] Latest Vital Signs: Temperature 98.0 , Pulse 86 , B/P 119 /71 , Respiratory Rate 18 , O2 SAT 98 , Nasal Cannula, O2 Flow Rate 2.0 . Vital Sign Comment: [WNL] Latest Chandler Fall Score: 45 Fall Risk: High Risk Safety Measures: Call light Within Reach, Bed Alarm Zone 2, Side Rails Side Rails x2, Bed position Low and Locked. Fall Precautions: Yellow Socks Report given to [].
[2020-07-09 06:57] LABS: INR 1.2 (0.9-1.1)
--- NOTE | 2020-07-09 07:27 | NUR ---
NURSE NOTES: Report received from Crissy BABCOCK, rounds made. Patient AOX4, calm, eating breakfast in high fowlers position, in bed. No distress on RA. Respirations even/unlabored. IS at bedside. Denies pain, SOB, NV. LLE hailey wrap in place, with kerlix pressure dressing remains in place, CDI. Hemovac in place. Neuros intact, skin cool to toes and warm to thigh, wiggles, pulses palpable, hand grasps 4/5/pedal pushes 3/5, no NT. Will apply CPM as ordered (increase by 10 degrees as tolerated, discussed with patient, verbalized understanding.) Right SCD on. IV D5 1/2 NS +20 KCL at 75 ml/hr to left wrist, site asymptomatic. Call light in reach, bed in lowest position, will continue to monitor.
--- NOTE | 2020-07-09 07:38 | NUR ---
HAND OFF: Report given to SADIQ MAY.
[2020-07-09 08:00] VITALS: BP 131/85
--- NOTE | 2020-07-09 08:35 | General Progress Note ---
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 incentive spirometry 2. SCD; hold lovenox with low platelets 3. PT evaluation and therapy 4. Hydration 5. Pain management 6. discharge planning; cannot give aspirin with low platelets Subjective Allergies: Coded Allergies: No Known Allergies (Unverified , 07/06/20) Subjective care noted platelets reduced Objective Last 24 Hour Vital Signs Date Time Temp Pulse Resp B/P (MAP) Pulse Ox O2 Delivery O2 Flow Rate FiO2 07/09/20 04:00 98.0 86 18 119/71 (87) 98 07/09/20 00:00 98.1 84 18 115/71 (86) 98 07/08/20 21:00 Nasal Cannula 2.0 07/08/20 20:00 97.5 77 17 108/55 (72) 99 07/08/20 16:00 97.6 81 16 128/76 (93) 99 07/08/20 14:00 Room Air 07/08/20 13:07 68 20 98 07/08/20 12:00 97.5 83 16 96/61 (73) 95 07/08/20 09:00 Room Air Intake and Output 07/08/20 07/09/20 19:00 07:00 Intake Total 2270 ml 1200 ml Output Total 550 ml 80 ml Balance 1720 ml 1120 ml Intake Oral 1520 ml 1200 ml IV Total 750 ml Output Urine Total 450 ml Drainage Total 100 ml 80 ml # Voids 1 3 Laboratory Tests 07/09/20 05:05: White Blood Count 9.2#, Red Blood Count 3.20L, Hemoglobin 10.7L, Hematocrit 31.9L, Mean Corpuscular Volume 100H, Mean Corpuscular Hemoglobin 33.6H, Mean Corpuscular Hemoglobin Concent 33.7, Red Cell Distribution Width 12.0, Platelet Count 65L, Mean Platelet Volume 10.4H, Neutrophils (%) (Auto) , Lymphocytes (%) (Auto) , Monocytes (%) (Auto) , Eosinophils (%) (Auto) , Basophils (%) (Auto) , Neutrophils % (Manual) [Pending], Lymphocytes % (Manual) [Pending], Platelet Estimate [Pending], Platelet Morphology [Pending], Prothrombin Time 12.6H, Prothromb Time International Ratio 1.2H Height (Feet): 5 Height (Inches): 3 Weight (Pounds): 200 Objective WDWN NAD clear breath sounds bilaterally without rhonchi or wheeze [id number] without MRG NABS nontender no HSM no CCE nonfocal Srikanth Fernandez MD Jul 09, 2020 08:35
[2020-07-09] MEDS: Docusate 100mg cap ORAL SCH ×3 (09:35→18:55)
[2020-07-09] MEDS: celeBREX 200mg Cap **SURGERY PATIENTS ONLY ORAL SCH (09:35)
[2020-07-09] MEDS: oxyCONTIN 20mg tab ORAL SCH ×2 (09:35→20:37)
[2020-07-09] MEDS: Acetaminophen 500mg (ES) tab ORAL SCH ×3 (09:36→18:56)
[2020-07-09] MEDS: D5 1/2NS w/KCl 20mEq 1,000 ML IV SCH (09:37)
--- NOTE | 2020-07-09 10:30 | NUR ---
PT NOTE Patient placed in CPM 0-40 degrees flexion for LLE with good alignment. Will return in one hour to remove patient from CPM per Dr. Fish order (07/08/2020 CPM: 0-30 degrees, increase by 10 degrees QD, one hour CPM TID regardless of drainage).
[2020-07-09 12:00] VITALS: BP 124/80
--- NOTE | 2020-07-09 12:47 | General Progress Note ---
Assessment/Plan Status: stable Status Narrative See Above Assessment/Plan: A/P: s/p TKA Lt knee Cont PT, Hold Lovenox for next 12-24 hr until next platelet count cont CPM, Start Ice Machine Rec transfer to Rehab vs Home if possible Subjective Date patient seen: Jul 09, 2020 Time patient seen: 12:42 ROS Limited/Unobtainable: No Constitutional: Reports: no symptoms HEENT: Reports: no symptoms Cardiovascular: Reports: no symptoms Respiratory: Reports: no symptoms Gastrointestinal/Abdominal: Reports: no symptoms Genitourinary: Reports: no symptoms Neurologic/Psychiatric: Reports: no symptoms Endocrine: Reports: no symptoms Hematologic/Lymphatic: Reports: no symptoms Allergies: Coded Allergies: No Known Allergies (Unverified , 07/06/20) All Systems: reviewed and negative except above Subjective Pt doing well, pain controlled, except after PT as expected, No BM but + gas Denies any distal parasthesia No N/V Objective Last 24 Hour Vital Signs Date Time Temp Pulse Resp B/P (MAP) Pulse Ox O2 Delivery O2 Flow Rate FiO2 07/09/20 12:00 98.3 103 18 124/80 (95) 98 07/09/20 08:00 98.8 112 18 131/85 (100) 95 07/09/20 04:00 98.0 86 18 119/71 (87) 98 07/09/20 00:00 98.1 84 18 115/71 (86) 98 07/08/20 21:00 Nasal Cannula 2.0 07/08/20 20:00 97.5 77 17 108/55 (72) 99 07/08/20 16:00 97.6 81 16 128/76 (93) 99 07/08/20 14:00 Room Air 07/08/20 13:07 68 20 98 Intake and Output 07/08/20 07/09/20 19:00 07:00 Intake Total 2270 ml 1200 ml Output Total 550 ml 80 ml Balance 1720 ml 1120 ml Intake Oral 1520 ml 1200 ml IV Total 750 ml Output Urine Total 450 ml Drainage Total 100 ml 80 ml # Voids 1 3 Laboratory Tests 07/09/20 05:05: White Blood Count 9.2#, Red Blood Count 3.20L, Hemoglobin 10.7L, Hematocrit 31.9L, Mean Corpuscular Volume 100H, Mean Corpuscular Hemoglobin 33.6H, Mean Corpuscular Hemoglobin Concent 33.7, Red Cell Distribution Width 12.0, Platelet Count 65L, Mean Platelet Volume 10.4H, Neutrophils (%) (Auto) , Lymphocytes (%) (Auto) , Monocytes (%) (Auto) , Eosinophils (%) (Auto) , Basophils (%) (Auto) , Differential Total Cells Counted 100, Neutrophils % (Manual) 80H, Lymphocytes % (Manual) 18L, Monocytes % (Manual) 2, Eosinophils % (Manual) 0, Basophils % ( Manual) 0, Band Neutrophils 0, Platelet Estimate DecreasedL, Platelet Morphology Normal, Hypochromasia 2+, Anisocytosis 1+, Prothrombin Time 12.6H, Prothromb Time International Ratio 1.2H Height (Feet): 5 Height (Inches): 3 Weight (Pounds): 200 Objective POD #2: s/p Lt TKA Pt doing well, pain controlled, AVSS Lt Knee: Incision is clean, dry and intact, min surface bleed around hemovac from tension - New dressing and Tegaderm applied; No Hematoma Calf soft and NT, neg Luba Distal motor and sensory intact A/P: s/p TKA Lt knee Cont PT, Hold Lovenox for next 12-24 hr until next platelet count cont CPM, Start Ice Machine Rec transfer to Rehab vs Home if possible Diony Fish MD Jul 09, 2020 12:47
--- NOTE | 2020-07-09 13:00 | NUR ---
NURSE NOTES: Patient noted with fresh red blood drainage to left upper thigh this AM when PT attempted to work with her. Dr. Fernandez notified at bedside at 0845, as well that Lovenox was started last night and noted bilateral toes cool to touch, feet and upper legs warm, color normal, no NT, capillary refill <3 seconds, orders CBC today and remove dressing/then rewrap with new dressing (removed entire dressing/left steri strips and xeroform in place, then applied 4x4, with kerlix and new hailey wrap at 1015) and to notify Dr. Fish. Called Dr. Fish twice, left detailed message with call back number at 0915, no call back. Notified Dr. Fernandez with lab results at 1010, no further orders. Dr. Fish arrived at bedside, updated on above dressing status, lab results, Lovenox, platelets, IVF, activity, above cool toes status, see orders. Dressing was changed again with Dr. Fish at 1215 (4x4, tegederm), shortly after, noted hemovac site saturated with fresh blood, notified Dr. Fish, okay to apply more 4x4 and tegederm on top of current dressing. Applied as ordered at 1250. Will continue to monitor.
[2020-07-09] MEDS ORDERED: VITAMIN D3250 MCG PO (13:55)
[2020-07-09 15:50] VITALS: BP 112/75
--- NOTE | 2020-07-09 17:29 | NUR ---
CASE MANAGEMENT: REVIEW 07/09/20 SI:LEFT KNEE ARTHRITIS . THROMBOCYTOPENIA . HYPOTENSIVE 98.3 103 18 124/80 98% ON 2L NC PLT 65 PT/INR 12.6/1.2 IS:IV D5 @75ML/HR IV DILAUDID Q4HR/PRN OXYCONTIN PO BID PROTONIX PO QD \: 3E MED SURG UNIT DCP: HOME WHEN STABLE PLAN: WOUND CARE TO SURGICAL SITE~BLOOD DRAINAGE CONT IV HYDRATION CONT TO CONTROL PAIN ENCOURAGE IS DEVICE DVT PROPHYLAXIS MONITOR PLT LEVEL ~LOWER PT EVAL AND THERAPY RECOMMENDATION SW CONSULT REHAB CONSULT ~IF CLEARED TO BY WC ADJUSTOR
--- NOTE | 2020-07-09 19:25 | NUR ---
NURSE HAND-OFF: Important Events on Shift:Dressing with fresh bloody drainage to hemovac insertion site (additional 4x4/tegederm applied as ordered), CPM 0-40 degrees twice this shift (needs one more CPM hour tonight), surgical site dressing changed with Dr. Fish (remains CDI) Patient Status: stable Diet: regular Hemovac: 25 ml Pending Orders: dulcolax suppository not given, patient wants to wait to see if she can go on her own Pending Results/Labs:none Pending MD notification:none Latest Vital Signs: Temperature 98.1 , Pulse 90 , B/P 112 /75 , Respiratory Rate 16 , O2 SAT 99 , Nasal Cannula, O2 Flow Rate 2.0 . Vital Sign Comment: none Latest Chandler Fall Score: 60 Fall Risk: High Risk Safety Measures: Call light Within Reach, Bed Alarm Zone 2, Side Rails Side Rails x2, Bed position Low and Locked. Fall Precautions: Yellow Socks Patient Fall Education Report given to Anushka/Jose Elias BABCOCK.
--- NOTE | 2020-07-09 19:30 | NUR ---
NURSE NOTES: patient and report received from SADIQ Jarquin. Patient is alert and oriented x4 with no acute s/s of distress and 6/10 pain. Will provide pain medication when due. IV site clean dry and intact and saline locked. Dressing on left knee with serosanguineous drainage. Will redress site after pain meds given. Plan of care discussed.
[2020-07-09 20:00] VITALS: BP 115/68
--- NOTE | 2020-07-09 21:55 | NUR ---
NURSE NOTES: CPM applied 2044 to 2144. Patient tolerated well. another layer of 4x4 and tagaderm added over hemovac insertion site.
[2020-07-10] VITALS: BP 103/50
--- NOTE | 2020-07-10 00:10 | NUR ---
NURSE NOTES: Assessed neurovascular status of LLE. feet and ankle showed no signs of edema or swelling and no pain. Dorsalis pedis manually palpated. Patient with no c/o of numbing and tingling. Pain noted at 5/10 when leg is moved but otherwise patient is comfortable. Ice packs applied.
[2020-07-10 04:00] VITALS: BP 131/68
[2020-07-10 07:07] LABS: INR 1.1 (0.9-1.1)
--- NOTE | 2020-07-10 07:08 | NUR ---
NURSE NOTES: Report received from Jose Elias/Anushka RN, rounds made. Patient AOX4, calm, eating breakfast in high fowlers position, in bed. No distress on RA. Respirations even/unlabored. IS at bedside. Denies SOB, NV. Left knee pain 04/07, ice pack in place, will medicate as ordered. Left knee/upper thigh dressing CDI. Hemovac in place. Neuros intact, skin cool to toes and warm to feet/legs, wiggles, pulses palpable, hand grasps 4/5/pedal pushes 3/5, no NT. Will apply CPM as ordered (increase by 10 degrees as tolerated) Right SCD on. Left wrist, saline lock, site asymptomatic. Call light in reach, bed in lowest position, will continue to monitor.
--- NOTE | 2020-07-10 07:23 | NUR ---
NURSE HAND-OFF: Important Events on Shift: added a layer of 4x4 dressing with tagaderm over hemovac insertion site per MD order. Pain management. Patient Status: stable Diet: regular Pending Orders: na Pending Results/Labs:NA Pending MD notification:NA Latest Vital Signs: Temperature 98.0 , Pulse 75 , B/P 102 /60 , Respiratory Rate 17 , O2 SAT 98 , Nasal Cannula, O2 Flow Rate 2.0 . Vital Sign Comment: stable throughout shift, heart rate fluctuates between 90s to low 100s but patient in no apparent acute distress Latest Chandler Fall Score: 20 Fall Risk: Low Risk Safety Measures: Call light Within Reach, Bed Alarm Zone 1, Side Rails Side Rails x2, Bed position Low and Locked. Fall Precautions: Yellow Socks Patient Fall Education Report given to SADIQ Jarquin.
[2020-07-10 07:30] LABS: HEMATOCRIT 31.1 % (37.0-47.0); HEMOGLOBIN 10.6 G/DL (12.0-16.0); MEAN CORPUSCULAR VOLUME 100 FL (80-99); PLATELET COUNT 49 K/UL (150-450); RED BLOOD COUNT 3.12 M/UL (4.20-5.40); RED CELL DISTRIBUTION WIDTH 12.1 % (11.6-14.8)
[2020-07-10 08:00] VITALS: BP 133/88
--- NOTE | 2020-07-10 08:35 | NUR ---
NURSE NOTES: Dr. Fernandez notified of AM labs and patient complains of phlegm in her throat, unable to clear throat. Orders received to hold Lovenox and Robitussin PRN, see order, will update patient.
[2020-07-10] MEDS ORDERED: guaiFENesin /DM 10ml syrup ORAL PRN (08:45)
[2020-07-10] MEDS: Docusate 100mg cap ORAL SCH ×3 (09:33→19:09)
[2020-07-10] MEDS: celeBREX 200mg Cap **SURGERY PATIENTS ONLY ORAL SCH (09:34)
[2020-07-10] MEDS: oxyCONTIN 20mg tab ORAL SCH ×2 (09:35→20:27)
[2020-07-10] MEDS: Acetaminophen 500mg (ES) tab ORAL SCH ×3 (09:35→19:09)
[2020-07-10 12:00] VITALS: BP 109/64
--- NOTE | 2020-07-10 13:40 | General Progress Note ---
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 incentive spirometry 2. SCD; hold lovenox with low platelets 3. PT evaluation and therapy 4. Hydration 5. Pain management 6. discharge planning; cannot give aspirin with low platelets Subjective Allergies: Coded Allergies: No Known Allergies (Unverified , 07/06/20) Subjective care noted platelets reduced Objective Last 24 Hour Vital Signs Date Time Temp Pulse Resp B/P (MAP) Pulse Ox O2 Delivery O2 Flow Rate FiO2 07/10/20 12:00 97.8 101 16 109/64 (79) 97 07/10/20 08:00 97.9 104 16 133/88 (103) 99 07/10/20 04:00 97.7 92 14 131/68 (89) 98 07/10/20 00:00 98.0 99 16 103/50 (67) 96 07/09/20 21:00 Nasal Cannula 2.0 07/09/20 20:00 97.9 101 17 115/68 (84) 98 07/09/20 15:50 98.1 90 16 112/75 (87) 99 Intake and Output 07/09/20 07/10/20 19:00 07:00 Intake Total 1695 ml 400 ml Output Total 725 ml 20 ml Balance 970 ml 380 ml Intake Oral 1470 ml 400 ml IV Total 225 ml Output Urine Total 700 ml Drainage Total 25 ml 20 ml # Voids 3 3 Laboratory Tests 07/10/20 05:15: White Blood Count 5.0, Red Blood Count 3.12L, Hemoglobin 10.6L, Hematocrit 31.1L , Mean Corpuscular Volume 100H, Mean Corpuscular Hemoglobin 33.9H, Mean Corpuscular Hemoglobin Concent 34.0, Red Cell Distribution Width 12.1, Platelet Count 49L, Mean Platelet Volume 10.2H, Neutrophils (%) (Auto) , Lymphocytes (%) (Auto) , Monocytes (%) (Auto) , Eosinophils (%) (Auto) , Basophils (%) (Auto) , Differential Total Cells Counted 100, Neutrophils % (Manual) 63, Lymphocytes % ( Manual) 26, Monocytes % (Manual) 9, Eosinophils % (Manual) 2, Basophils % ( Manual) 0, Band Neutrophils 0, Platelet Estimate DecreasedL, Platelet Morphology Normal, Hypochromasia 1+, Anisocytosis 1+, Prothrombin Time 12.3H, Prothromb Time International Ratio 1.1 Height (Feet): 5 Height (Inches): 3 Weight (Pounds): 200 Objective WDWN NAD clear breath sounds bilaterally without rhonchi or wheeze [id number] without MRG NABS nontender no HSM no CCE nonfocal Srikanth Fernandez MD Jul 10, 2020 13:40
--- NOTE | 2020-07-10 15:00 | NUR ---
NURSE NOTES: Patient up with PT, ambulated to the door, then up to WC with LLE slightly elevated. Ice machine applied by PT, remains on patient, unless up to BSC. On CPM 0-50 for one hour [id number]. Left heel on rolled towel when in bed and off of CPM.
--- NOTE | 2020-07-10 15:01 | NUR ---
CASE MANAGEMENT:REVIEW SI;POD #3 TOTAL LEFT KNEE ARTHROPLASTY 98.0 104 17 103/50 96% 2L NC PLT 49 PT 12.3 IS;PROTONIX PO QD OXYCONTIN PO Q12 CELEBREX PO QD TYLENOL PO TID 3E MED SURG STATUS DCP;FROM HOME
[2020-07-10 16:00] VITALS: BP 107/66
--- NOTE | 2020-07-10 17:06 | General Progress Note ---
Assessment/Plan Status: stable Assessment/Plan: SEE ABOVE for A/P DETAILS - A/P: s/p TKA Lt knee POD#3 Cont PT, Hold Lovenox for next 24 hr until next platelet count cont CPM and Ice machine Rec transfer to Rehab Sunday if possible or d/c home if meets d/c criteria Subjective Date patient seen: Jul 10, 2020 Time patient seen: 16:58 ROS Limited/Unobtainable: No Constitutional: Reports: no symptoms HEENT: Reports: no symptoms Cardiovascular: Reports: no symptoms Respiratory: Reports: no symptoms Endocrine: Reports: no symptoms Hematologic/Lymphatic: Reports: no symptoms Allergies: Coded Allergies: No Known Allergies (Unverified , 07/06/20) All Systems: reviewed and negative except above Subjective Pt doing well, pain controlled, except after ambulation/PT as expected, No BM but + gas Denies any distal parasthesia No N/V new sacral bruising centrally - likely due to tcp no hematoma, will cont to observe, warm/heat pad prn Objective Last 24 Hour Vital Signs Date Time Temp Pulse Resp B/P (MAP) Pulse Ox O2 Delivery O2 Flow Rate FiO2 07/10/20 12:00 97.8 101 16 109/64 (79) 97 07/10/20 08:00 97.9 104 16 133/88 (103) 99 07/10/20 04:00 97.7 92 14 131/68 (89) 98 07/10/20 00:00 98.0 99 16 103/50 (67) 96 07/09/20 21:00 Nasal Cannula 2.0 07/09/20 20:00 97.9 101 17 115/68 (84) 98 Intake and Output 07/09/20 07/10/20 19:00 07:00 Intake Total 1695 ml 400 ml Output Total 725 ml 20 ml Balance 970 ml 380 ml Intake Oral 1470 ml 400 ml IV Total 225 ml Output Urine Total 700 ml Drainage Total 25 ml 20 ml # Voids 3 3 Laboratory Tests 07/10/20 05:15: White Blood Count 5.0, Red Blood Count 3.12L, Hemoglobin 10.6L, Hematocrit 31.1L , Mean Corpuscular Volume 100H, Mean Corpuscular Hemoglobin 33.9H, Mean Corpuscular Hemoglobin Concent 34.0, Red Cell Distribution Width 12.1, Platelet Count 49L, Mean Platelet Volume 10.2H, Neutrophils (%) (Auto) , Lymphocytes (%) (Auto) , Monocytes (%) (Auto) , Eosinophils (%) (Auto) , Basophils (%) (Auto) , Differential Total Cells Counted 100, Neutrophils % (Manual) 63, Lymphocytes % ( Manual) 26, Monocytes % (Manual) 9, Eosinophils % (Manual) 2, Basophils % ( Manual) 0, Band Neutrophils 0, Platelet Estimate DecreasedL, Platelet Morphology Normal, Hypochromasia 1+, Anisocytosis 1+, Prothrombin Time 12.3H, Prothromb Time International Ratio 1.1 Height (Feet): 5 Height (Inches): 3 Weight (Pounds): 200 General Appearance: no apparent distress EENT: normal ENT inspection Cardiovascular: normal peripheral pulses Respiratory/Chest: no respiratory distress Abdomen: non tender, soft Pelvis: other - proximal central sacral bruising from supine and TCP will tx symptomatically and observe Extremities: no calf tenderness Edema: no edema noted Arm (L), no edema noted Arm (R), no edema noted Leg (L), no edema noted Leg (R); 1+ Pedal (L), 1+ Pedal (R); no edema noted Generalized Edema: trace edema Skin: other - WNL except as listed Lymphatic: normal anterior cervical (L), normal anterior cervical (R), normal posterior cervical (L), normal posterior cervical (R), normal submandibular (L) , normal submandibular (R), normal supraclavicular (L), normal supraclavicular ( R), normal axillary (L), normal axillary (R), normal inguinal (L), normal inguinal (R), normal other Objective POD #3: s/p Lt TKA Pt doing well, pain controlled, AVSS Lt Knee: Dressing is clean, dry and intact,approx 60cc from drain last 24hr; No Hematoma Calf soft and NT, neg Luba Distal motor and sensory intact A/P: s/p TKA Lt knee Cont PT, Hold Lovenox for next 24 hr until next platelet count cont CPM, Cont Ice Machine at all times while in bed Rec transfer to Rehab Sunday if possible otherwise Home d/c if meets ambulatory and safety criteria, etc Diony Fish MD Jul 10, 2020 17:06
--- NOTE | 2020-07-10 17:42 | NUR ---
NURSE NOTES: Dr. Fish notified at bedside of lower back bruise noted, patient denies having bruise prior to hospitalization. Possible hematoma from Lovenox or positioning in OR, per MD. Skin remains intact. Will endorse to next shift.
--- NOTE | 2020-07-10 19:20 | NUR ---
NURSE HAND-OFF: Important Events on Shift: Hold Lovenox, Bruise to lower back (skin intact), ice machine on, refused MOM (attempted to administer x3), refused Dulcolax suppository (Dr. Fish aware) Patient Status: stable Diet: regular Hemovac: 50 ml Pending Orders: none Pending Results/Labs:CBC 07/11 Pending MD notification:none Latest Vital Signs: Temperature 97.8 , Pulse 99 , B/P 107 /66 , Respiratory Rate 16 , O2 SAT 97 , Room Air, O2 Flow Rate 2.0 . Vital Sign Comment: none Latest Chandler Fall Score: 60 Fall Risk: High Risk Safety Measures: Call light Within Reach, Bed Alarm Zone 2, Side Rails Side Rails x2, Bed position Low and Locked. Fall Precautions: Yellow Socks Patient Fall Education Report given to Anushka/Jose Elias RN.
--- NOTE | 2020-07-10 19:34 | NUR ---
NURSE NOTES: Received patient and report from SADIQ Jarquin. Pt alert and oriented x 4 wo s/s of acute distress. Patient with 5/10 pain, will give pain meds when due. Surgical dressing noted. Hemovac noted and draining. Plan of care discussed.
[2020-07-10 20:00] VITALS: BP 115/90
[2020-07-11 04:00] VITALS: BP 133/47
[2020-07-11 05:38] LABS: INR 1.1 (0.9-1.1)
[2020-07-11 05:42] LABS: HEMATOCRIT 29.2 % (37.0-47.0); HEMOGLOBIN 9.8 G/DL (12.0-16.0); MEAN CORPUSCULAR VOLUME 101 FL (80-99); PLATELET COUNT 74 K/UL (150-450); RED CELL DISTRIBUTION WIDTH 12.6 % (11.6-14.8); WHITE BLOOD COUNT 4.3 K/UL (4.8-10.8)
--- NOTE | 2020-07-11 07:14 | NUR ---
NURSE NOTES: Report received from Jose Elias/Anushka RN, rounds made. Patient AOX4, calm, eating breakfast in high fowlers position, in bed. No distress on RA. Respirations even/unlabored. IS at bedside. Denies SOB, NV. Left knee pain 5-6, ice machine in place, will medicate as ordered. Left knee/upper thigh dressing is leaking, bloody drainage. Hemovac remains in place. Neuros intact, skin cool to toes and warm to feet/legs, wiggles, pulses palpable, hand grasps 4/5/pedal pushes 3/5, no NT. Will apply CPM as ordered (increase by 10 degrees as tolerated) Right SCD on. Left wrist, saline lock, site asymptomatic. Call light in reach, bed in lowest position, will continue to monitor.
--- NOTE | 2020-07-11 07:24 | NUR ---
NURSE HAND-OFF: Important Events on Shift: BM x1, hemovac insertion site leaking, endorsed to day shift nurse Patient Status: stable Diet: regular Pending Orders: NA Pending Results/Labs:NA Pending MD notification:NA Latest Vital Signs: Temperature 98.2 , Pulse 96 , B/P 133 /47 , Respiratory Rate 15 , O2 SAT 96 , Room Air, O2 Flow Rate 2.0 . Vital Sign Comment: stable throughout shift Latest Chandler Fall Score: 60 Fall Risk: High Risk Safety Measures: Call light Within Reach, Bed Alarm Zone 2, Side Rails Side Rails x2, Bed position Low and Locked. Fall Precautions: Yellow Socks Patient Fall Education Report given to SADIQ Jarquin.
[2020-07-11 08:00] VITALS: BP 142/83
[2020-07-11] MEDS: oxyCONTIN 20mg tab ORAL SCH ×2 (08:43→21:21)
[2020-07-11] MEDS: Acetaminophen 500mg (ES) tab ORAL SCH ×3 (08:44→18:00)
[2020-07-11] MEDS: celeBREX 200mg Cap **SURGERY PATIENTS ONLY ORAL SCH (08:44)
[2020-07-11] MEDS: Docusate 100mg cap ORAL SCH ×3 (08:45→18:21)
--- NOTE | 2020-07-11 09:36 | NUR ---
NURSE NOTES: Dr. Fernandez updated on AM labs, medications and bruise noted to lower back (which remains unchanged from yesterday). No further orders.
[2020-07-11 12:00] VITALS: BP 137/80
--- NOTE | 2020-07-11 13:08 | General Progress Note ---
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 incentive spirometry 2. SCD; hold lovenox with low platelets 3. PT evaluation and therapy 4. Hydration 5. Pain management 6. discharge planning possibly in am; cannot give aspirin with low platelets Subjective Allergies: Coded Allergies: No Known Allergies (Unverified , 07/06/20) Subjective care noted platelets reduced Objective Last 24 Hour Vital Signs Date Time Temp Pulse Resp B/P (MAP) Pulse Ox O2 Delivery O2 Flow Rate FiO2 07/11/20 09:00 Room Air 07/11/20 08:00 97.9 97 16 142/83 (102) 97 07/11/20 04:00 98.2 96 15 133/47 (75) 96 07/10/20 20:45 Room Air 07/10/20 20:00 98.0 103 19 115/90 (98) 98 07/10/20 16:00 97.8 99 16 107/66 (80) 97 Intake and Output 07/10/20 07/11/20 19:00 07:00 Intake Total 1000 ml 800 ml Output Total 50 ml 13 ml Balance 950 ml 787 ml Intake Oral 1000 ml 800 ml Drainage Total 50 ml 13 ml # Voids 3 3 # Bowel Movements 1 Laboratory Tests 07/11/20 05:15: White Blood Count 4.3L, Red Blood Count 2.90L, Hemoglobin 9.8L, Hematocrit 29.2L , Mean Corpuscular Volume 101H, Mean Corpuscular Hemoglobin 33.9H, Mean Corpuscular Hemoglobin Concent 33.7, Red Cell Distribution Width 12.6, Platelet Count 74#L, Mean Platelet Volume 9.6, Neutrophils (%) (Auto) , Lymphocytes (%) ( Auto) , Monocytes (%) (Auto) , Eosinophils (%) (Auto) , Basophils (%) (Auto) , Differential Total Cells Counted 100, Neutrophils % (Manual) 54, Lymphocytes % ( Manual) 33, Monocytes % (Manual) 11H, Eosinophils % (Manual) 2, Basophils % ( Manual) 0, Band Neutrophils 0, Platelet Estimate DecreasedL, Platelet Morphology Normal, Hypochromasia 2+, Anisocytosis 1+, Macrocytosis 1+, Spherocytes 1+, Prothrombin Time 12.2H, Prothromb Time International Ratio 1.1 Height (Feet): 5 Height (Inches): 3 Weight (Pounds): 200 Objective WDWN NAD clear breath sounds bilaterally without rhonchi or wheeze [id number] without MRG NABS nontender no HSM no CCE nonfocal sacral bruising Srikanth Fernandez MD Jul 11, 2020 13:08
--- NOTE | 2020-07-11 16:18 | NUR ---
CASE MANAGEMENT:REVIEW SI;POD #4 TOTAL LEFT KNEE ARTHROPLASTY 98.2 97 18 142/83 96% ON RA WNC 4.3 RBC 2.90 PLT 74 IS;PROTONIX PO QD OXYCONTIN PO Q12 CELEBREX PO QD TYLENOL PO TID 3E MED SURG STATUS DCP;FROM HOME
--- NOTE | 2020-07-11 17:00 | NUR ---
NURSE NOTES: Patient up to bathroom multiple times with RN, up with PT x2 this shift. On CPM 0-50 [phone], encouraged patient to have CPM applied once more at this time, patient refused, will endorse to next shift. Left thigh hemovac insertion site, still leaking, reinforced with 4x4 and tegederm as ordered. Will continue to monitor.
[2020-07-11 18:30] VITALS: BP 119/75
--- NOTE | 2020-07-11 19:26 | NUR ---
NURSE HAND-OFF: Important Events on Shift: left thigh hemovac insertion site still leaking (reinforced as ordered), up to bathroom, ambulated in halls with PT, on CPM 0-50 x1 Patient Status: stable Diet: regular Outputs: Hemovac: 25 ml Pending Orders: none Pending Results/Labs:none Pending MD notification:none Latest Vital Signs: Temperature 98.0 , Pulse 103 , B/P 119 /75 , Respiratory Rate 18 , O2 SAT 100 , Room Air, O2 Flow Rate 2.0 . Vital Sign Comment: none Latest Chandler Fall Score: 60 Fall Risk: High Risk Safety Measures: Call light Within Reach, Bed Alarm Zone 2, Side Rails Side Rails x2, Bed position Low and Locked. Fall Precautions: Yellow Socks Patient Fall Education Report given to Rahel BABCOCK.
--- NOTE | 2020-07-11 19:30 | NUR ---
NURSE NOTES: Received report from SADIQ Jarquin. Rounds done, patient in good spirits. Resting quietly in bed, denies pain. States she prefers not to take pain meds. Discussed other pain control measures such as ice, repositioning, distraction. Noted L knee dressing dry and intact. Hemovac dressing saturated, was reinforced by previous shift RN but has continued to leak. Will change dressing, see surgical wound assessment for more detail. Hemovac compressed, small amount serous sanguineous fluid. LW saline lock intact. Assisted patient to BSC, patient gets slightly dizzy when she gets up, instructed to sit and wait before standing and always call for assistance to get OOB and plan to use BSC tonight. Patient did well, used walker and transferred to BSC with assistance. Voided without difficulty, assisted with baljeet care.
[2020-07-11 20:00] VITALS: BP 119/61
--- NOTE | 2020-07-11 22:00 | NUR ---
NURSE NOTES: Dr Fish here, Hemovac dc'd. Aware of bruising on lower back, left hip and left thigh. Physician gave instructions to patient that she may use heating pad on bruises if she wishes, but to continue icing left knee. Also recommended to place support, flat pillow or towel under left hip for comfort while supine or to turn onto her right side with a pillow between her legs. Recommended to turn often. Patient verbalized understanding of all these instructions. Left knee dressing continue to be intact and dry. Physician placed steri strips on Hemovac site, dry and intact. Dr Fish states patient might be able to go home tomorrow, will see how she does with PT in the morning.
--- NOTE | 2020-07-11 22:10 | General Progress Note ---
Assessment/Plan Status: stable Status Narrative POD #4: s/p Lt TKA Pt doing well, pain controlled, AVSS Lt Knee: Dressing is clean, dry and intact,approx 25cc from drain last 24hr - drain removed No Hematoma Calf soft and NT, neg Luba Distal motor and sensory intact A/P: s/p TKA Lt knee Cont PT, Hold Lovenox for next 24 hr until next platelet count, freq repositioning cont CPM, Cont Ice Machine at all times while in bed Rec transfer to Rehab Sunday if possible otherwise Home d/c if meets ambulatory and safety criteria, etc Assessment/Plan: POD #4: s/p Lt TKA Pt doing well, pain controlled, AVSS Lt Knee: Dressing is clean, dry and intact,approx 25cc from drain last 24hr - drain removed No Hematoma Calf soft and NT, neg Luba Distal motor and sensory intact A/P: s/p TKA Lt knee Cont PT, Hold Lovenox for next 24 hr until next platelet count, freq repositioning cont CPM, Cont Ice Machine at all times while in bed Rec transfer to Rehab Sunday if possible otherwise Home d/c if meets ambulatory and safety criteria, etc Subjective Date patient seen: Jul 11, 2020 Time patient seen: 22:05 ROS Limited/Unobtainable: No Constitutional: Denies: no symptoms, chills, diaphoresis, fever, malaise, weakness, other HEENT: Denies: no symptoms, eye pain, blurred vision, tearing, double vision, ear pain, ear discharge, nose pain, nose congestion, throat pain, throat swelling, mouth pain, mouth swelling, other Cardiovascular: Denies: no symptoms, chest pain, edema, irregular heart rate, lightheadedness, palpitations, syncope, other Respiratory: Denies: no symptoms, cough, orthopnea, shortness of breath, SOB with excertion, SOB at rest, sputum, stridor, wheezing, other Gastrointestinal/Abdominal: Denies: no symptoms, abdomen distended, abdominal pain, black stools, tarry stools, blood in stool, constipated, diarrhea, difficulty swallowing, nausea, poor appetite, poor fluid intake, rectal bleeding , vomiting, other Genitourinary: Denies: no symptoms, burning, discharge, frequency, flank pain, hematuria, incontinence, pain, urgency, other Neurologic/Psychiatric: Denies: no symptoms, anxiety, depressed, emotional problems, headache, numbness, paresthesia, pre-existing deficit, seizure, tingling, tremors, weakness, other Endocrine: Denies: no symptoms, excessive sweating, flushing, intolerance to cold, intolerance to heat, increased hunger, increased thirst, increased urine, unexplained weight gain, unexplained weight loss, other Hematologic/Lymphatic: Denies: no symptoms, anemia, easy bleeding, easy bruising, other Allergies: Coded Allergies: No Known Allergies (Unverified , 07/06/20) All Systems: reviewed and negative except above Subjective Pt doing well, pain controlled with oxycontin, +BM Denies any distal parasthesia No N/V Sacral bruising centrally Stable - likely due to tcp, bruising noted post thigh and calf second to TCP no hematoma, will cont to observe, warm/heat pad prn, freq repositioning, etc Objective Last 24 Hour Vital Signs Date Time Temp Pulse Resp B/P (MAP) Pulse Ox O2 Delivery O2 Flow Rate FiO2 07/11/20 18:30 98.0 103 18 119/75 (90) 100 07/11/20 12:00 97.8 95 18 137/80 (99) 98 07/11/20 09:00 Room Air 07/11/20 08:00 97.9 97 16 142/83 (102) 97 07/11/20 04:00 98.2 96 15 133/47 (75) 96 Intake and Output 07/10/20 07/11/20 19:00 07:00 Intake Total 1000 ml 800 ml Output Total 50 ml 13 ml Balance 950 ml 787 ml Intake Oral 1000 ml 800 ml Drainage Total 50 ml 13 ml # Voids 3 3 # Bowel Movements 1 Laboratory Tests 07/11/20 05:15: White Blood Count 4.3L, Red Blood Count 2.90L, Hemoglobin 9.8L, Hematocrit 29.2L , Mean Corpuscular Volume 101H, Mean Corpuscular Hemoglobin 33.9H, Mean Corpuscular Hemoglobin Concent 33.7, Red Cell Distribution Width 12.6, Platelet Count 74#L, Mean Platelet Volume 9.6, Neutrophils (%) (Auto) , Lymphocytes (%) ( Auto) , Monocytes (%) (Auto) , Eosinophils (%) (Auto) , Basophils (%) (Auto) , Differential Total Cells Counted 100, Neutrophils % (Manual) 54, Lymphocytes % ( Manual) 33, Monocytes % (Manual) 11H, Eosinophils % (Manual) 2, Basophils % ( Manual) 0, Band Neutrophils 0, Platelet Estimate DecreasedL, Platelet Morphology Normal, Hypochromasia 2+, Anisocytosis 1+, Macrocytosis 1+, Spherocytes 1+, Prothrombin Time 12.2H, Prothromb Time International Ratio 1.1 Height (Feet): 5 Height (Inches): 3 Weight (Pounds): 200 General Appearance: no apparent distress EENT: normal ENT inspection Neck: non-tender Cardiovascular: normal peripheral pulses Respiratory/Chest: lungs clear Abdomen: normal bowel sounds Extremities: no calf tenderness, normal capillary refill Edema: trace edema Neurologic: no motor/sensory deficits Skin: other - multiple areas of bruising 2nd to tcp - no hematoma, all compartments soft Objective POD #4: s/p Lt TKA Pt doing well, pain controlled, AVSS Lt Knee: Dressing is clean, dry and intact,approx 25cc from drain last 24hr - drain removed No Hematoma Calf soft and NT, neg Luba Distal motor and sensory intact A/P: s/p TKA Lt knee Cont PT, Hold Lovenox for next 24 hr until next platelet count, freq repositioning cont CPM, Cont Ice Machine at all times while in bed Rec transfer to Rehab Sunday if possible otherwise Home d/c if meets ambulatory and safety criteria, etc Diony Fish MD Jul 11, 2020 22:10
--- NOTE | 2020-07-11 22:16 | Discharge Summary ---
Discharge Summary Hospital Course Date of Admission Jul 07, 2020 at 05:41 Date of Discharge Jul 13, 2020 at 1100 Admitting Diagnosis End stage OA of Left knee with flexion contracture SOLOMON Wheeler is a 69 year old female who was admitted on Jul 07, 2020 at 05:41 for End Stage Osteoartritis Left Knee Procedures s/p Left total knee arthroplasty Hospital Course Patient was admitted on 07-07-2020 and underwent a left total knee arthroplasty without complication. She was admitted to the floor the same day and begun PT the following AM as well as DVT prophylaxis Her platelets began to decrease and Lovenox was d/c, mult areas of bruising noted, but no hematoma or issues Patient cont to make slow but steady progress and met d/c criteria on 07-13-20 She was d/c with pain med, NSAIDs prn, stool softner, and dvt prophylaxis when plt count normalizes Hospital course essentially uneventful and without complication. Discharge Condition Upon Discharge: stable Discharge Vital Signs Last Vital Signs Date Time Temp Pulse Resp B/P (MAP) Pulse Ox O2 Delivery O2 Flow Rate FiO2 07/11/20 18:30 98.0 103 18 119/75 (90) 100 07/11/20 09:00 Room Air 07/09/20 21:00 2.0 Discharge Disposition Patient was discharged to Discharge Diagnoses: (1) Knee arthropathy (2) knee (3) Status post knee replacement Diony Fish MD Jul 11, 2020 22:16
--- NOTE | 2020-07-11 22:19 | General Progress Note ---
Assessment/Plan Status: stable Status Narrative Patient was admitted on 07-07-2020 and underwent a left total knee arthroplasty without complication. She was admitted to the floor the same day and begun PT the following AM as well as DVT prophylaxis Her platelets began to decrease and Lovenox was d/c, mult areas of bruising noted, but no hematoma or issues Patient cont to make slow but steady progress and met d/c criteria on 07-13-20 She was d/c with pain med, NSAIDs prn, stool softner, and dvt prophylaxis when plt count normalizes Hospital course essentially uneventful and without complication. Assessment/Plan: Patient was admitted on 07-07-2020 and underwent a left total knee arthroplasty without complication. She was admitted to the floor the same day and begun PT the following AM as well as DVT prophylaxis Her platelets began to decrease and Lovenox was d/c, mult areas of bruising noted, but no hematoma or issues Patient cont to make slow but steady progress and met d/c criteria on 07-13-20 She was d/c with pain med, NSAIDs prn, stool softner, and dvt prophylaxis when plt count normalizes Hospital course essentially uneventful and without complication. Subjective Date patient seen: Jul 12, 2020 Time patient seen: 13:17 ROS Limited/Unobtainable: No Constitutional: Denies: no symptoms, chills, diaphoresis, fever, malaise, weakness, other HEENT: Denies: no symptoms, eye pain, blurred vision, tearing, double vision, ear pain, ear discharge, nose pain, nose congestion, throat pain, throat swelling, mouth pain, mouth swelling, other Cardiovascular: Denies: no symptoms, chest pain, edema, irregular heart rate, lightheadedness, palpitations, syncope, other Respiratory: Denies: no symptoms, cough, orthopnea, shortness of breath, SOB with excertion, SOB at rest, sputum, stridor, wheezing, other Gastrointestinal/Abdominal: Denies: no symptoms, abdomen distended, abdominal pain, black stools, tarry stools, blood in stool, constipated, diarrhea, difficulty swallowing, nausea, poor appetite, poor fluid intake, rectal bleeding , vomiting, other Genitourinary: Denies: no symptoms, burning, discharge, frequency, flank pain, hematuria, incontinence, pain, urgency, other Neurologic/Psychiatric: Denies: no symptoms, anxiety, depressed, emotional problems, headache, numbness, paresthesia, pre-existing deficit, seizure, tingling, tremors, weakness, other Endocrine: Denies: no symptoms, excessive sweating, flushing, intolerance to cold, intolerance to heat, increased hunger, increased thirst, increased urine, unexplained weight gain, unexplained weight loss, other Hematologic/Lymphatic: Denies: no symptoms, anemia, easy bleeding, easy bruising, other Allergies: Coded Allergies: No Known Allergies (Unverified , 07/06/20) All Systems: reviewed and negative except above Subjective Pt doing well, pain controlled with oxycontin, +BM Denies any distal parasthesia No N/V No fever or chills Sacral bruising centrally Stable - likely due to tcp, bruising noted post thigh and calf second to TCP no hematoma, will cont to observe, warm/heat pad prn, freq repositioning, etc Objective Last 24 Hour Vital Signs Date Time Temp Pulse Resp B/P (MAP) Pulse Ox O2 Delivery O2 Flow Rate FiO2 07/11/20 18:30 98.0 103 18 119/75 (90) 100 07/11/20 12:00 97.8 95 18 137/80 (99) 98 07/11/20 09:00 Room Air 07/11/20 08:00 97.9 97 16 142/83 (102) 97 07/11/20 04:00 98.2 96 15 133/47 (75) 96 Intake and Output 07/10/20 07/11/20 19:00 07:00 Intake Total 1000 ml 800 ml Output Total 50 ml 13 ml Balance 950 ml 787 ml Intake Oral 1000 ml 800 ml Drainage Total 50 ml 13 ml # Voids 3 3 # Bowel Movements 1 Laboratory Tests 07/11/20 05:15: White Blood Count 4.3L, Red Blood Count 2.90L, Hemoglobin 9.8L, Hematocrit 29.2L , Mean Corpuscular Volume 101H, Mean Corpuscular Hemoglobin 33.9H, Mean Corpuscular Hemoglobin Concent 33.7, Red Cell Distribution Width 12.6, Platelet Count 74#L, Mean Platelet Volume 9.6, Neutrophils (%) (Auto) , Lymphocytes (%) ( Auto) , Monocytes (%) (Auto) , Eosinophils (%) (Auto) , Basophils (%) (Auto) , Differential Total Cells Counted 100, Neutrophils % (Manual) 54, Lymphocytes % ( Manual) 33, Monocytes % (Manual) 11H, Eosinophils % (Manual) 2, Basophils % ( Manual) 0, Band Neutrophils 0, Platelet Estimate DecreasedL, Platelet Morphology Normal, Hypochromasia 2+, Anisocytosis 1+, Macrocytosis 1+, Spherocytes 1+, Prothrombin Time 12.2H, Prothromb Time International Ratio 1.1 Height (Feet): 5 Height (Inches): 3 Weight (Pounds): 200 General Appearance: no apparent distress EENT: normal ENT inspection Neck: non-tender Cardiovascular: normal peripheral pulses Respiratory/Chest: lungs clear Abdomen: normal bowel sounds Extremities: non-tender, normal capillary refill Edema: trace edema Skin: other - bruising without hematoma secondary to tcp Objective POD #5: s/p Lt TKA Pt doing well, pain controlled, AVSS Lt Knee: Incision is clean, dry and intact, No Hematoma Calf soft and NT, neg Luba Distal motor and sensory intact A/P: s/p TKA Lt knee Plan d/c with cold unit, CPM, HHPT, meds, etc F/u 10 days-14 days Awaiting Authorization to transfer to Rehab tomorrow am,or d/c home in am MIPS Medication Reconciliation Is this a Psycho/Diag encounte: No Depression Does this Patient have Dementi: Diony Wheatley MD Jul 11, 2020 22:19
[2020-07-12] VITALS: BP 128/66
--- NOTE | 2020-07-12 07:30 | NUR ---
NURSE HAND-OFF: Important Events on Shift: pain better controlled after [place] x1, Hemovac DC'd by MD last night. H&H continues to decrease, plat low Patient Status: stable Diet: Regular, tolerating well Pending Orders: Pending Results/Labs: Pending MD notification: Latest Vital Signs: Temperature 99.0 , Pulse 89 , B/P 128 /66 , Respiratory Rate 18 , O2 SAT 96 , Room Air, O2 Flow Rate 2.0 . Vital Sign Comment: Latest Chandler Fall Score: 60 Fall Risk: High Risk Safety Measures: Call light Within Reach, Bed Alarm Zone 2, Side Rails Side Rails x2, Bed position Low and Locked. Fall Precautions: Yellow Socks Patient Fall Education Report given to SADIQ Shine. Rounds done.
[2020-07-12 08:00] VITALS: BP 109/64
--- NOTE | 2020-07-12 08:29 | NUR ---
NURSE NOTES: Received report from Rahel BABCOCK, pt a/a/o x4 laying in bed with no signs of distress or other issues at this time. surgical dressing dry and intact. call light within reach, bed in lowest position. side rales up. I will f/u as needed.
--- NOTE | 2020-07-12 08:32 | General Progress Note ---
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 incentive spirometry 2. SCD; hold lovenox with low platelets 3. PT evaluation and therapy 4. Hydration 5. Pain management 6. discharge planning possibly today patient does not have adequate help at home will have CM assist may need short term rehab repeat cbc and start aspirin if platelets in safe range Subjective Allergies: Coded Allergies: No Known Allergies (Unverified , 07/06/20) Subjective care noted platelets reduced Objective Last 24 Hour Vital Signs Date Time Temp Pulse Resp B/P (MAP) Pulse Ox O2 Delivery O2 Flow Rate FiO2 07/12/20 00:00 99.0 89 18 128/66 (86) 96 07/11/20 21:00 Room Air 07/11/20 20:00 97.8 91 19 119/61 (80) 96 07/11/20 18:30 98.0 103 18 119/75 (90) 100 07/11/20 12:00 97.8 95 18 137/80 (99) 98 07/11/20 09:00 Room Air Intake and Output 07/11/20 07/12/20 19:00 07:00 Intake Total 1000 ml 750 ml Output Total 25 ml 1210 ml Balance 975 ml -460 ml Intake Oral 1000 ml 750 ml Output Urine Total 1200 ml Drainage Total 25 ml 10 ml # Voids 3 4 Height (Feet): 5 Height (Inches): 3 Weight (Pounds): 200 Objective WDWN NAD clear breath sounds bilaterally without rhonchi or wheeze [id number] without MRG NABS nontender no HSM no CCE nonfocal sacral bruising Srikanth Fernandez MD Jul 12, 2020 08:32
[2020-07-12] MEDS: celeBREX 200mg Cap **SURGERY PATIENTS ONLY ORAL SCH (09:39)
[2020-07-12] MEDS: oxyCONTIN 20mg tab ORAL SCH ×2 (09:40→21:27)
[2020-07-12] MEDS: Docusate 100mg cap ORAL SCH ×3 (09:40→17:30)
[2020-07-12] MEDS: Acetaminophen 500mg (ES) tab ORAL SCH ×3 (09:40→17:29)
[2020-07-12 12:00] VITALS: BP 121/73
--- NOTE | 2020-07-12 13:22 | General Progress Note ---
Assessment/Plan Status: stable Status Narrative Patient was admitted on 07-07-2020 and underwent a left total knee arthroplasty without complication. She was admitted to the floor the same day and begun PT the following AM as well as DVT prophylaxis Her platelets began to decrease and Lovenox was d/c, mult areas of bruising noted, but no hematoma or issues Patient cont to make slow but steady progress and met d/c criteria on 07-13-20 She was d/c with pain med, NSAIDs prn, stool softner, and dvt prophylaxis when plt count normalizes Hospital course essentially uneventful and without complication. Assessment/Plan: Patient was admitted on 07-07-2020 and underwent a left total knee arthroplasty without complication. She was admitted to the floor the same day and begun PT the following AM as well as DVT prophylaxis Her platelets began to decrease and Lovenox was d/c, mult areas of bruising noted, but no hematoma or issues Patient cont to make slow but steady progress and met d/c criteria on 07-13-20 She was d/c with pain med, NSAIDs prn, stool softner, and dvt prophylaxis when plt count normalizes Hospital course essentially uneventful and without complication. Subjective Date patient seen: Jul 12, 2020 Time patient seen: 13:20 ROS Limited/Unobtainable: No Constitutional: Denies: no symptoms, chills, diaphoresis, fever, malaise, weakness, other HEENT: Denies: no symptoms, eye pain, blurred vision, tearing, double vision, ear pain, ear discharge, nose pain, nose congestion, throat pain, throat swelling, mouth pain, mouth swelling, other Cardiovascular: Denies: no symptoms, chest pain, edema, irregular heart rate, lightheadedness, palpitations, syncope, other Respiratory: Denies: no symptoms, cough, orthopnea, shortness of breath, SOB with excertion, SOB at rest, sputum, stridor, wheezing, other Gastrointestinal/Abdominal: Denies: no symptoms, abdomen distended, abdominal pain, black stools, tarry stools, blood in stool, constipated, diarrhea, difficulty swallowing, nausea, poor appetite, poor fluid intake, rectal bleeding , vomiting, other Genitourinary: Denies: no symptoms, burning, discharge, frequency, flank pain, hematuria, incontinence, pain, urgency, other Neurologic/Psychiatric: Denies: no symptoms, anxiety, depressed, emotional problems, headache, numbness, paresthesia, pre-existing deficit, seizure, tingling, tremors, weakness, other Endocrine: Denies: no symptoms, excessive sweating, flushing, intolerance to cold, intolerance to heat, increased hunger, increased thirst, increased urine, unexplained weight gain, unexplained weight loss, other Hematologic/Lymphatic: Denies: no symptoms, anemia, easy bleeding, easy bruising, other Allergies: Coded Allergies: No Known Allergies (Unverified , 07/06/20) All Systems: reviewed and negative except above Subjective Pt doing well, pain controlled with oxycontin, +BM Denies any distal parasthesia No N/V No fever or chills Sacral bruising centrally Stable - likely due to tcp, bruising noted post thigh and calf second to TCP no hematoma, will cont to observe, warm/heat pad prn, freq repositioning, etc Objective Last 24 Hour Vital Signs Date Time Temp Pulse Resp B/P (MAP) Pulse Ox O2 Delivery O2 Flow Rate FiO2 07/12/20 10:10 99.0 07/12/20 10:10 99.0 07/12/20 08:00 98.1 89 18 109/64 (79) 98 07/12/20 00:00 99.0 89 18 128/66 (86) 96 07/11/20 21:00 Room Air 07/11/20 20:00 97.8 91 19 119/61 (80) 96 07/11/20 18:30 98.0 103 18 119/75 (90) 100 Intake and Output 07/11/20 07/12/20 19:00 07:00 Intake Total 1000 ml 750 ml Output Total 25 ml 1210 ml Balance 975 ml -460 ml Intake Oral 1000 ml 750 ml Output Urine Total 1200 ml Drainage Total 25 ml 10 ml # Voids 3 4 Height (Feet): 5 Height (Inches): 3 Weight (Pounds): 200 General Appearance: no apparent distress EENT: normal ENT inspection Neck: non-tender Cardiovascular: normal peripheral pulses Respiratory/Chest: lungs clear Abdomen: normal bowel sounds Edema: trace edema Objective POD #5: s/p Lt TKA Pt doing well, pain controlled, AVSS Lt Knee: Incision is clean, dry and intact, No Hematoma Calf soft and NT, neg Luba Distal motor and sensory intact A/P: s/p TKA Lt knee Plan d/c with cold unit, CPM, HHPT, meds, etc F/u 10 days-14 days Awaiting Authorization to transfer to Rehab tomorrow am,or d/c home in am MIPS Medication Reconciliation Is this a Psycho/Diag encounte: No Depression Does this Patient have Dementi: No Diony Fish MD Jul 12, 2020 13:22
[2020-07-12] MEDS ORDERED: OXYCONTIN20 MG ORAL (13:30)
[2020-07-12] MEDS ORDERED: HYDROCODON-ACE1 EA15 ORAL (13:30)
[2020-07-12] MEDS ORDERED: COLACE100 MG ORAL (13:30)
[2020-07-12] MEDS ORDERED: FEOSOL325 MG ORAL (13:30)
[2020-07-12] MEDS ORDERED: FRONT WHEELED WALKER (13:32)
--- NOTE | 2020-07-12 13:39 | Discharge Instructions ---
Discharge Instructions Discharge Instructions Services at Discharge: physical therapy Diet: regular Additional Diet Information: rec low fat and increase protein, 1500 agapito max Activity: up w/ walker Pneumonia Vaccine: pt rcvd vaccine prior to this visit Influenza Vaccine (Jul to Dec): pt rcvd vaccine prior to this visit Follow Up Orders Pt will be seen in office in 10-14 days. Leave dressing intact and may remove in 5 days. Change only if saturated or skin issues...keep a waterproof dressing on to allow pt to bathe beginning today Must Use CPM for 1hr TID, and increase setting 5-10 deg per day...Must reposition, stand/walk every hour to prevent further bruising, etc If constipated and no OTC meds help in 24hr, call physician HHPT TIW Must use Immobilizer when walking/standing Use pillow between knees when sleeping Use cold unit at all times when not ambulating (Keep washcloth between dressing or skin and icing pad. Call office [phone] if any issues or questions Return to Work/School on: Jan 27, 2021 Special Instructions See above For Surgical Patients Clean and Dry: surgical site Dressing Care: other - See above Elevate: left leg with pillow May shower: Yes Contact your physician for: bleeding, pain, tenderness, redness, swelling For Congestive Heart Failure Reminder Report to your physician any weight gain of 5 pounds or more in one week. Diony Fish MD Jul 12, 2020 13:39
[2020-07-12 14:55] LABS: HEMATOCRIT 29.2 % (37.0-47.0); HEMOGLOBIN 9.8 G/DL (12.0-16.0); MEAN CORPUSCULAR VOLUME 100 FL (80-99); PLATELET COUNT 75 K/UL (150-450); RED BLOOD COUNT 2.92 M/UL (4.20-5.40); RED CELL DISTRIBUTION WIDTH 12.5 % (11.6-14.8); WHITE BLOOD COUNT 3.7 K/UL (4.8-10.8)
--- NOTE | 2020-07-12 15:05 | NUR ---
*-*DISCHARGE PLANNING*-* PATIENT HAS BEEN REFERRED TO: [facility] P: [phone] [facility] [phone]
--- NOTE | 2020-07-12 15:55 | NUR ---
DISCHARGE PLANNING [facility] [place] CON[facility]# [id number] DOI 09/18/2013 ELIJAH MCDONALD ADJ VERIFIED [phone] GARIMA IS COVERING FOR ELIJAH [phone]
--- NOTE | 2020-07-12 15:59 | NUR ---
CASE MANAGEMENT:REVIEW 07/12/20 SI: POD #5 S/P TOTAL LEFT KNEE 97.9 107 18 121/73 100% ON RA WBC-3.7 H/H-9.8/29.2 PLT-75 IS: PROTONIX PO QD OXYCONTIN PO Q12 COLACE PO TID CELEBREX PO QD : MED/SURG STATUS 3 EAST DCP: FROM HOME BUT NEEDS ACUTE REHAB PLAN: [facility] SEVERAL MESSAGES LEFT FOR ADJUSTOR GARIMA WHO IS COVERING FOR ELIJAH T: [phone]
[2020-07-12 16:00] VITALS: BP 124/65
--- NOTE | 2020-07-12 19:15 | NUR ---
NURSE HAND-OFF: Important Events on Shift: Patient Status: [full] Diet: regular Pending Orders: Pending Results/Labs:cbc Pending MD notification:[] Latest Vital Signs: Temperature 97.9 , Pulse 94 , B/P 124 /65 , Respiratory Rate 18 , O2 SAT 100 , Room Air, O2 Flow Rate 2.0 . Vital Sign Comment: [] Latest Chandler Fall Score: 60 Fall Risk: High Risk Safety Measures: Call light Within Reach, Bed Alarm Zone 2, Side Rails Side Rails x2, Bed position Low and Locked. Fall Precautions: pt is able to ambulate with staff assistance and the use of FWW Yellow Socks Patient Fall Education Report given to [Rahel BABCOCK, pt in stable condition.
--- NOTE | 2020-07-12 19:20 | NUR ---
NURSE NOTES: Received report from SADIQ Shine. Rounds done.
[2020-07-12 20:00] VITALS: BP 137/77
--- NOTE | 2020-07-12 20:00 | NUR ---
NURSE NOTES: Patient doing well, uses knee immobilizer when oob as directed. Ice on L knee. IV site intact. States she's doing well in terms of pain and doesn't wish for pain med at this time. Assisted oob to bathroom, using walker, able to be more independent but still needs help. Bed in low position, side rail up x2, call light within reach, encouraged to increase independence and call RN as needed for assistance. Patient verbalizes understanding. Will continue to monitor.
[2020-07-13] VITALS: BP 142/82
[2020-07-13 04:00] VITALS: BP 127/75
--- NOTE | 2020-07-13 07:35 | NUR ---
NURSE HAND-OFF: Important Events on Shift: pain well controlled with around the clock Oxycontin, has not needed other pain meds Patient Status: stable Diet: regular Pending Orders: Pending Results/Labs: Pending MD notification: Latest Vital Signs: Temperature 98.7 , Pulse 98 , B/P 127 /75 , Respiratory Rate 16 , O2 SAT 97 , Room Air, O2 Flow Rate 2.0 . Vital Sign Comment: Latest Chandler Fall Score: 60 Fall Risk: High Risk Safety Measures: Call light Within Reach, Bed Alarm Zone 2, Side Rails Side Rails x2, Bed position Low and Locked. Fall Precautions: Yellow Socks Patient Fall Education Report given to SADIQ Parra. Rounds done.
--- NOTE | 2020-07-13 07:40 | NUR ---
NURSE NOTES: WALKING ROUNDS DONE WITH NIGHT RN.PATIENT UP IN HAVING BREAKFAST. LLE DRSG C/D/I W/ BRACE ON AND SECURED. CMS WNL. NOTED BRUISING TO LOWER ASPECT OF LEFT EXTREMITY BELOW SURGICAL SITE AND TO MID LOWER BACK. C/O SURGICAL PAIN BUT CONTROLLED WITH OXYCONTIN SCHEDULED.DISCUSSED PLAN OF CARE FOR THE DAY. VERBALIZED UNDERSTANDING. CALL LIGHT WITHIN REACH.
[2020-07-13 08:00] VITALS: BP 135/83
[2020-07-13] MEDS: Docusate 100mg cap ORAL SCH ×3 (08:53→17:55)
[2020-07-13] MEDS: celeBREX 200mg Cap **SURGERY PATIENTS ONLY ORAL SCH (08:54)
[2020-07-13] MEDS: Acetaminophen 500mg (ES) tab ORAL SCH ×3 (08:54→17:55)
[2020-07-13] MEDS: oxyCONTIN 20mg tab ORAL SCH ×2 (08:54→21:00)
--- NOTE | 2020-07-13 09:21 | NUR ---
NURSE NOTES: AMBULATED PATIENT TO BATHROOM WITH WALKER X1 SBA. GAIT STEADY AND SLOW. MOVES SLOW BUT SAFELY. ABLE TO FOLLOW DIRECTIONS WELL. NEEDS ENCOURAGEMENT TO GET OOB MORE OFTEN.
--- NOTE | 2020-07-13 09:21 | NUR ---
Discharge planning New contract provided patient authorized for rehab DC facility planner faxed to Shirin jolly MD DC facility planner to F/U Addendum: 07/13/20 at 0932 by CONOR GOODE LVN [facility] T: [phone]
--- NOTE | 2020-07-13 11:01 | NUR ---
NURSE NOTES: REMOVED CPM FROM LLE. TOLERATED 1 HOUR @ 60 DEGREES. SURGICAL REMAINS C/D/I. ROLL SMALL TOWEL PLACED UNDER HEEL. TOLERATED WELL. BED IN LOW AND LOCKED POSITION. BED ALARM ON, CALL LIGHT WITHIN REACH WITH PERSONAL ITEMS WITHIN ARM'S REACH.
[2020-07-13 11:28] VITALS: BP 130/66
--- NOTE | 2020-07-13 11:35 | General Progress Note ---
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 incentive spirometry 2. SCD; hold lovenox for now 3. PT evaluation and therapy 4. Hydration 5. Pain management 6. discharge planning possibly today patient does not have adequate help at home will have CM assist may need short term rehab repeat cbc and start aspirin if platelets in safe range Subjective Allergies: Coded Allergies: No Known Allergies (Unverified , 07/06/20) Subjective care noted platelets reduced Objective Last 24 Hour Vital Signs Date Time Temp Pulse Resp B/P (MAP) Pulse Ox O2 Delivery O2 Flow Rate FiO2 07/13/20 11:28 98.7 101 18 130/66 (87) 98 07/13/20 09:24 98.2 07/13/20 09:24 98.2 07/13/20 09:00 Room Air 07/13/20 08:00 98.2 107 16 135/83 (100) 98 07/13/20 04:00 98.7 98 16 127/75 (92) 97 07/13/20 00:00 99.2 98 16 142/82 (102) 98 07/12/20 21:00 Room Air 07/12/20 20:00 98.8 100 18 137/77 (97) 100 07/12/20 16:00 97.9 94 18 124/65 (84) 100 07/12/20 12:00 97.9 107 18 121/73 (89) 100 Intake and Output 07/12/20 07/13/20 19:00 07:00 Intake Total 1000 ml 500 ml Balance 1000 ml 500 ml Intake Oral 1000 ml 500 ml # Voids 4 4 Laboratory Tests 07/12/20 14:30: White Blood Count 3.7L, Red Blood Count 2.92L, Hemoglobin 9.8L, Hematocrit 29.2L , Mean Corpuscular Volume 100H, Mean Corpuscular Hemoglobin 33.7H, Mean Corpuscular Hemoglobin Concent 33.7, Red Cell Distribution Width 12.5, Platelet Count 75L, Mean Platelet Volume 7.6, Neutrophils (%) (Auto) , Lymphocytes (%) ( Auto) , Monocytes (%) (Auto) , Eosinophils (%) (Auto) , Basophils (%) (Auto) , Differential Total Cells Counted 100, Neutrophils % (Manual) 63, Lymphocytes % ( Manual) 30, Monocytes % (Manual) 6, Eosinophils % (Manual) 1, Basophils % ( Manual) 0, Band Neutrophils 0, Platelet Estimate DecreasedL, Platelet Morphology Normal, Red Blood Cell Morphology Normal Height (Feet): 5 Height (Inches): 3 Weight (Pounds): 200 Objective WDWN NAD clear breath sounds bilaterally without rhonchi or wheeze [id number] without MRG NABS nontender no HSM no CCE nonfocal sacral bruising Srikanth Fernandez MD Jul 13, 2020 11:35
--- NOTE | 2020-07-13 13:47 | NUR ---
CASE MANAGEMENT:REVIEW 07/13/20 SI: S/P TOTAL LEFT KNEE 98.7 101 18 130/66 98% ON RA NO LABS IS: PROTONIX PO QD OXYCONTIN PO Q12 COLACE PO TID CELEBREX PO QD : MED/SURG STATUS 3 EAST DCP: FROM HOME BUT NEEDS ACUTE REHAB PLAN: [facility] AD[facility] TO AUTHORIZE [facility]HAB
--- NOTE | 2020-07-13 14:01 | NUR ---
*-* INSURANCE *-* UPDATED CLINICALS AND REVIEWS HAVE BEEN FAXED TO: [facility] T: [phone] CLINICALS EMAILED Addendum: 07/13/20 at 1405 by CONOR GOODE LVN adjustor: [email or web address]
[2020-07-13 16:00] VITALS: BP 126/72
--- NOTE | 2020-07-13 17:26 | NUR ---
NURSE NOTES: PATIENT MORE ACTIVE TODAY. UP TO CHAIR FOR MEALS. PAIN CONTROLLED WITH SCHEDULED ANALGESICS. VSS AFEBRILE. SURGICAL SITE C/D/I WITH KNEE IMMOBILIZER ON WHEN OOB. CALL LIGTH AND PERSONAL ITEMS WITHIN ARM'S REACH.
--- NOTE | 2020-07-13 17:28 | NUR ---
*-*DISCHARGE PLANNING*-* PATIENT HAS BEEN REFERRED TO: [facility] P: [phone] [facility] [place], STATED OBTAINING A BED FOR PATIENT, WILL ACCEPT PATIENT FOR TOMORROW 07/14/2020, WILL CALL BACK IN THE MORNING. [facility] SET FOR WILL CALL.
--- NOTE | 2020-07-13 18:05 | NUR ---
NURSE NOTES: Called [facility] and spoke with DANIEL Harris transport arranged, pickup time 1999.
--- NOTE | 2020-07-13 19:30 | NUR ---
NURSE NOTES: REPORT GIVEN TO OLLIE CHARGE NURSE @ [facility]. PATIENT TO BE TRANSFERRED BY [facility] TO ROOM 828.RX PLACED IN TRANSFERRING PACKET WITH MED RECON. ALL BELONGINGS REVIEWED AND PACKED BY NIGHT NURSE HUNT AND SIGNED OFF.
--- NOTE | 2020-07-13 19:32 | NUR ---
NURSE HAND-OFF: Important Events on Shift: TRANSFERRING TO [facility]IA [facility]. Patient Status: STABLE Diet: REGULAR Pending Orders: N/A Pending Results/Labs:N/A Pending MD notification:N/A Latest Vital Signs: Temperature 97.8 , Pulse 83 , B/P 126 /72 , Respiratory Rate 20 , O2 SAT 98 , Room Air, O2 Flow Rate 2.0 . Vital Sign Comment:N.A Latest Chandler Fall Score: 50 Fall Risk: High Risk Safety Measures: Call light Within Reach, Bed Alarm Zone 1, Side Rails Side Rails x2, Bed position Low and Locked. Fall Precautions: Yellow Socks Yellow Gown Door Sign Patient Fall Education Report given to GILBERT BABCOCK.
[2020-07-13 20:00] VITALS: BP 140/80
--- NOTE | 2020-07-13 20:21 | NUR ---
NURSE NOTES: Received patient awake, alert, verbal, sitting in a wheelchair, waitng for ambulance for transfer to [facility].
--- NOTE | 2020-07-13 22:44 | NUR ---
NURSE NOTES: Patient transferred to [facility] by ambulance in stable condition.
== END 2020-07-13 22:45 | disposition short-term general hospital (02) | DRG 470 ==
LOC: SDSOVERFLO 05:41 → 3E 15:39
PROC: 0SRD0JZ Replacement of Left Knee Joint with Synthetic Substitute, Open Approach (ICD-10-PCS; principal; 2020-07-07 07:30)
DX: M17.12 Unilateral primary osteoarthritis, left knee (principal); D69.6 Thrombocytopenia, unspecified; D64.9 Anemia, unspecified; M21.169 Varus deformity, not elsewhere classified, unspecified knee; M21.069 Valgus deformity, not elsewhere classified, unspecified knee; M24.562 Contracture, left knee
CPT/HCPCS: 36415; 85007; 85025; 85610; 86850; 86900; 86901; 87081; 94003; 94150; J2180; J2405; J2795; U0002